=== PATIENT | female | born 1955 | race Caucasian/White ===

== ENCOUNTER 2021-05-14 12:22 | Observation (INO) | payer SELFPAY ==
[2021-05-14 14:47] LABS: Absolute Lymphocytes (CBC) 1.8 K/uL (0.7-4.9); Hematocrit 16.7 % (36.0-45.0); Lymphocytes % 17.6 % (15.3-44.8); MPV 8.1 fL (7.6-11.3); RBC Red Blood Cell Count 3.11 M/uL (3.86-4.86)
[2021-05-14 14:51] LABS: BUN Blood Urea Nitrogen 9 mg/dL (7-18); Bicarbonate 25 mmol/L (21-32); Glucose Level 88 mg/dL (74-106); Potassium 3.7 mmol/L (3.5-5.1); Sodium Level 132 mmol/L (136-145)
--- NOTE | 2021-05-14 15:10 | ER ---
Nurse's Notes [facility] Name: Tayla Francis Age: 65 yrs Sex: Female : 1955 Arrival Date: 05/14/2021 Time: 12:25 Bed 19 Private MD: Diagnosis: Anemia, unspecified Presentation: 05/14 12:38 Chief complaint: Patient states: Got blood drawn with Dr. Quigley yesterday. Was told her ll1 HGB is 3.9 and that she needs a blood transfusion. + weak, tired, fatigued, and pale. No fevers. Out of her BP meds for 1 month. Coronavirus screen: Client denies travel out of the [place] in the last 14 days. At this time, the client does not indicate any symptoms associated with coronavirus-19. Ebola Screen: Patient denies travel to an Ebola-affected area in the 21 days before illness onset. Initial Sepsis Screen: Does the patient meet any 2 criteria? No. Patient's initial sepsis screen is negative. Does the patient have a suspected source of infection? No. Patient's initial sepsis screen is negative. Risk Assessment: Do you want to hurt yourself or someone else? Patient reports no desire to harm self or others. Onset of symptoms was April 30, 2021. 12:38 Method Of Arrival: Ambulatory ll1 12:38 Acuity: SALVADOR 3 ll1 Historical: - Allergies: 12:38 No Known Allergies; ll1 - PMHx: 12:38 Hypertensive disorder; preeclampsia; ll1 - PSHx: 12:38 section; ll1 - Immunization history:: Adult Immunizations up to date. - Social history:: Smoking status: unknown. Screenin:10 Abuse screen: Denies threats or abuse. Denies injuries from another. Nutritional ww screening: No deficits noted. Tuberculosis screening: No symptoms or risk factors identified. Fall Risk None identified. Assessment: 14:10 General: Appears in no apparent distress. comfortable, Behavior is calm, cooperative, ww appropriate for age. Pain: Denies pain. Neuro: Level of Consciousness is awake, alert, obeys commands, Oriented to person, place, time, situation, Speech is normal. Cardiovascular: No deficits noted. Denies chest pain, shortness of breath, Capillary refill < 3 seconds Patient's skin is warm and dry. Respiratory: Airway is patent Respiratory effort is even, unlabored, Respiratory pattern is regular, symmetrical. GI: No deficits noted. : No signs and/or symptoms were reported regarding the genitourinary system. EENT: No deficits noted. No signs and/or symptoms were reported regarding the EENT system. Derm: Skin is intact, Skin is pale. 15:15 Reassessment: Patient appears in no apparent distress at this time. No changes from ww previously documented assessment. Patient and/or family updated on plan of care and expected duration. Pain level reassessed. Patient is alert, oriented x 3, equal unlabored respirations, skin warm/dry/pink. spouse at bedside . 17:00 Reassessment: Patient appears in no apparent distress at this time. No changes from ww previously documented assessment. Patient and/or family updated on plan of care and expected duration. Pain level reassessed. Patient is alert, oriented x 3, equal unlabored respirations, skin warm/dry/pink. 18:37 Reassessment: Patient appears in no apparent distress at this time. No changes from ww previously documented assessment. Patient and/or family updated on plan of care and expected duration. Pain level reassessed. Patient is alert, oriented x 3, equal unlabored respirations, skin warm/dry/pink. 19:00 Reassessment: Patient appears in no apparent distress at this time. No changes from ll3 previously documented assessment. Patient and/or family updated on plan of care and expected duration. Pain level reassessed. Patient is alert, oriented x 3, equal unlabored respirations, skin warm/dry/pink. Vital Signs: 12:38 BP 127 / 71; Pulse 84; Resp 16; Temp 97.8; Pulse Ox 100% ; Pain 0/10; ll1 15:00 BP 122 / 60; Pulse 73; Resp 18; Pulse Ox 100% on R/A; ww 17:30 BP 131 / 60; Pulse 77; Resp 18; Pulse Ox 100% on R/A; ww 18:37 BP 114 / 53; Pulse 78; Resp 16; Pulse Ox 100% on R/A; ww 19:59 BP 129 / 75; Pulse 83; Resp 16; Pulse Ox 100% on R/A; ll3 ED Course: 12:25 Patient arrived in ED. as 12:38 Arm band placed on Patient placed in an exam room, on a stretcher. ll1 12:40 Triage completed. ll1 12:44 Deisi Beckman FNP-C [facility]. kb 12:44 Jamey Francis MD is Attending Physician. kb 13:15 Raisa Orozco, RN is Primary Nurse. ww 14:24 Type And Screen Sent. ww 14:24 Basic Metabolic Panel Sent. ww 14:24 CBC with Diff Sent. ww 14:25 Inserted saline lock: 20 gauge in left antecubital area, using aseptic technique. Blood tp1 collected. 15:09 Javan Del Toro MD is Hospitalizing Provider. kb 19:59 Patient has correct armband on for positive identification. Bed in low position. Call 3 light in reach. Side rails up X 1. 20:00 No provider procedures requiring assistance completed. Patient admitted, IV remains in ll3 place. intact, No redness/swelling at site. Administered Medications: No medications were administered Outcome: 15:09 Decision to Hospitalize by Provider. kb 19:25 Admitted to Med/surg Report called to Attempted to call report, was told to call [place] [phone] because they had not made the assignments yet 20:00 Admitted to Med/surg accompanied by tech, via wheelchair, room 204, Report called to [facility] 20:00 Condition: stable 20:00 Discharge instructions given to patient, Instructed on the need for admit, Demonstrated understanding of instructions. 20:01 Patient left the ED. 3 Signatures: Deisi Beckman FNP-C FNP-Kamille Verdugo as Kimber Jeong RN RN 1 Alphonse Decker RN RN 3 Carlota Schreiber tp1 Raisa Orozco RN RN
--- NOTE | 2021-05-14 15:10 | EDPHYS ---
Physician Documentation [facility] Name: Tayla Francis Age: 65 yrs Sex: Female : 1955 Arrival Date: 05/14/2021 Time: 12:25 Bed 19 Private MD: Jamey Xie HPI: 05/14 14:35 This 65 yrs old Female presents to ER via Ambulatory with complaints of Abnormal Lab kb Results - needs blood transfusion. 14:36 "I changed doctors so he did a blood panel on my first visit and told me I needed a kb blood transfusion and to come to the ER." Reports fatigue and weakness. Denies bleeding from anywhere. Reports normal stools. Onset: The symptoms/episode began/occurred today. Severity of symptoms: At their worst the symptoms were moderate in the emergency department the symptoms are unchanged. The patient has not experienced similar symptoms in the past. The patient has been recently seen by a physician:. Historical: - Allergies: 12:38 No Known Allergies; ll1 - PMHx: 12:38 Hypertensive disorder; preeclampsia; ll1 - PSHx: 12:38 section; ll1 - Immunization history:: Adult Immunizations up to date. - Social history:: Smoking status: unknown. ROS: 14:37 Cardiovascular: Negative for chest pain, palpitations, and edema. kb 14:37 Constitutional: Positive for fatigue. 14:37 Neuro: Positive for weakness. 14:37 All other systems are negative. Exam: 14:37 Constitutional: This is a well developed, well nourished patient who is awake, alert, kb and in no acute distress. Head/Face: Normocephalic, atraumatic. ENT: Moist Mucous membranes Cardiovascular: Regular rate and rhythm with a normal S1 and S2. No gallops, murmurs, or rubs. No pulse deficits. Respiratory: Respirations even and unlabored. No increased work of breathing. Talking in full sentences Skin: Warm, dry with normal turgor. Normal color. MS/ Extremity: Pulses equal, no cyanosis. Neurovascular intact. Full, normal range of motion. Neuro: Awake and alert, GCS 15, oriented to person, place, time, and situation. Moves all extremities. Normal gait. Psych: Awake, alert, with orientation to person, place and time. Behavior, mood, and affect are within normal limits. 14:37 Constitutional: The patient appears pale. 17:41 Abdomen/GI: Rectal exam: is unremarkable, Stool: guaiac negative. kb Vital Signs: 12:38 BP 127 / 71; Pulse 84; Resp 16; Temp 97.8; Pulse Ox 100% ; Pain 0/10; ll1 15:00 BP 122 / 60; Pulse 73; Resp 18; Pulse Ox 100% on R/A; ww 17:30 BP 131 / 60; Pulse 77; Resp 18; Pulse Ox 100% on R/A; ww 18:37 BP 114 / 53; Pulse 78; Resp 16; Pulse Ox 100% on R/A; ww 19:59 BP 129 / 75; Pulse 83; Resp 16; Pulse Ox 100% on R/A; ll3 MDM: 12:44 Patient medically screened. abigail 14:37 Data reviewed: vital signs, nurses notes. Data interpreted: Pulse oximetry: on room air kb is 100 %. Interpretation: normal. 15:07 Counseling: I had a detailed discussion with the patient and/or guardian regarding: the kb historical points, exam findings, and any diagnostic results supporting the discharge/admit diagnosis, lab results, the need for further work-up and treatment in the hospital. Physician consultation: Javan Del Toro MD was contacted at 15:08, regarding admission, to the medical/surgical unit. and will see patient in ED. 05/14 12:47 Order name: CBC with Diff kb 05/14 12:47 Order name: Basic Metabolic Panel; Complete Time: 14:51 kb 05/14 12:47 Order name: Type And Screen kb 05/14 13:09 Order name: COVID-19 SARS RT PCR (Document "Date of Onset" if Symptomatic); Complete kb Time: 14:05/14 15:03 Order name: Packed RBC Leukored EDMS 05/14 15:09 Order name: TIBC; Complete Time: 16:06 kb 05/14 15:09 Order name: Retic Count; Complete Time: 15:53 kb 05/14 15:09 Order name: B12; Complete Time: 16:06 kb 05/14 15:09 Order name: Folic Acid,Serum (folate); Complete Time: 16:06 kb 05/14 15:09 Order name: Ferritin; Complete Time: 16:06 kb 05/14 15:30 Order name: ABO/RH no charge; Complete Time: 15:31 EDMS 05/14 16:43 Order name: Regular EDMS 05/14 17:41 Order name: Guiac kb 05/14 18:57 Order name: CBC Smear Scan EDMS 05/14 12:47 Order name: IV Start; Complete Time: 14:24 kb Administered Medications: No medications were administered Disposition Summary: 05/14/21 15:09 Hospitalization Ordered Hospitalization Status: Observation kb Provider: Javan Del Toro Location: Telemetry/MedSurg (observation) kb Condition: Stable kb Problem: new kb Symptoms: are unchanged kb Bed/Room Type: Standard Room Assignment: 204(05/14/21 18:32) eb Diagnosis - Anemia, unspecified kb Forms: - Medication Reconciliation Form kb - SBAR form kb Addendum: 05/16/2021 07:10 Co-signature as Attending Physician, Jamey Francis MD I agree with the assessment and c ramirez plan of care. Signatures: Dispatcher [employer] EDAZ Deisi Beckman, RADIOLOGIST-C RADIOLOGIST-Ckb Jamey Francis MD MD cha Botello, Elizabeth eb Lewis, Lynsay RN RN ll1 Corrections: (The following items were deleted from the chart) 05/14 18:32 15:09 kb eb
[2021-05-14 15:43] LABS: RBC Red Blood Cell Count 3.12 M/uL (3.86-4.86)
[2021-05-14] MEDS ORDERED: NA CHLORIDE 0.9% 250 ML ONE ×3 (15:53→23:49)
[2021-05-14 16:04] LABS: Ferritin 42.7 ng/mL (8-388); Folic Acid, (Folate) 3.7 ng/mL (3.1-17.5)
--- NOTE | 2021-05-14 16:42 | P.HP ---
Certification for Inpatient Patient admitted to: Observation With expected LOS: <2 Midnights Practitioner: I am a practitioner with admitting privileges, knowledge of patient current condition, hospital course, and medical plan of care. Services: Services provided to patient in accordance with Admission requirements found in Title 42 Section 412.3 of the Code of Federal Regulations Patient History Date of Service: 05/14/21 Reason for admission: anemia History of Present Illness: 65yo F, sent to ED due to routine lab finding of Hgb down to 4. She reports fatigue / generalized weakness over the last 3-4 weeks. Denies any bleeding. Denies dark stools, no blood in urine/stool. Reports decreased appetite for a few months. Decreased taste in the last ~3 weeks as well. Denies history of covid. Denies n/v/d, no abdominal pain Patient ordered for 2u PRBC. Labs consistent with microcytic anemia. ED provider requests admission for blood transfusion. - Past Medical/Surgical History -: HTN -: hysterectomy - Family History Family History: Reviewed- Non-Contributory - Social History Smoking Status: Never smoker Alcohol use: No Place of Residence: Home Review of Systems 10-point ROS is otherwise unremarkable Physical Examination - Physical Exam General: Alert, In no apparent distress, Oriented x3, Other (pale) HEENT: Sclerae nonicteric Neck: No LAD Respiratory: Clear to auscultation bilaterally Cardiovascular: No edema, Regular rate/rhythm Capillary refill: <2 Seconds Gastrointestinal: Soft and benign, Non-distended, No tenderness Musculoskeletal: No erythema, No tenderness Integumentary: No rashes, No significant lesion Neurological: Normal speech, Normal strength at 5/5 x4 extr, Normal affect - Studies Laboratory Data (last 24 hrs) 05/14/21 14:16: Sodium 132 L, Potassium 3.7, BUN 9, Creatinine 0.57, Glucose 88 05/14/21 14:16: WBC 10.10, Hgb 4.5 L*, Hct 16.7 L*, Plt Count 881 H Assessment and Plan - Advance Directives Does patient have a Living Will: No Does patient have a Durable POA for Healthcare: No Physician Review Additional Text: Problem List Microcytic anemia History of hypertension Neuropathy Microcytic anemia, iron studies ordered Suspect iron deficiency, patient denies any dark or maroon stools Guaiac negative in ED Possible slow GI bleed Vital signs within normal limits, and stable 2 units ordered in the ED, will follow-up on posttransfusion hemoglobin Confirm home medications, restart as appropriate Code: Full Dispo: Anticipate DC home tomorrow Time Spent Managing Pts Care (In Minutes): 60
[2021-05-14 18:45] LABS: Blood Morphology Comment NOTED (NOT SEEN); Platelet Estimate INCR; White Blood Cell Scan OK (OK)
[2021-05-14 18:46] LABS: Anisocytosis 2+
[2021-05-14 18:54] LABS: Poikilocytosis 2+
[2021-05-14 18:56] LABS: Ovalocytes 1+; Polychromasia 1+; Teardrop Cell 1+
[2021-05-14 20:15] VITALS: BMI 21.3
[2021-05-14] MEDS ORDERED: ONDANSETRON 4 MG/2 ML VIAL IV PRN (20:15)
[2021-05-14] MEDS ORDERED: POTASSIUM CL SA 10 MEQ TAB PO ONE (22:13)
[2021-05-15 01:27] LABS: Urine Bilirubin NEGATIVE (Negative); Urine Blood NEGATIVE (Negative); Urine Color YELLOW (Yellow); Urine Glucose NEGATIVE (Negative); Urine Protein NEGATIVE (Negative); Urine pH 7.5 (5.0-7.0)
[2021-05-15 01:29] LABS: Urine Appearance CLEAR (Clear); Urine Microscopic Reflex NO UMIC
[2021-05-15 04:32] LABS: Absolute Lymphocytes (CBC) 2.1 K/uL (0.7-4.9); Hematocrit 24.1 % (36.0-45.0); Lymphocytes % 14.6 % (15.3-44.8)
[2021-05-15 04:52] LABS: ALT/SGPT 9 U/L (12-78); AST/SGOT 14 U/L (15-37); Albumin 2.1 g/dL (3.4-5.0); Alkaline Phosphatase 146 U/L (45-117); BUN Blood Urea Nitrogen 7 mg/dL (7-18); Bicarbonate 24 mmol/L (21-32); Bilirubin Total 0.5 mg/dL (0.2-1.0); Glucose Level 119 mg/dL (74-106); Magnesium 2.3 mg/dL (1.8-2.4); Potassium 3.9 mmol/L (3.5-5.1); Protein, Total 6.3 g/dL (6.4-8.2); Sodium Level 133 mmol/L (136-145)
--- NOTE | 2021-05-15 06:11 | P.PN ---
Date of Service: 05/15/21
[2021-05-15] MEDS ORDERED: POTASSIUM CL SA 10 MEQ TAB PO ONE (09:00)
[2021-05-15 09:26] VITALS: O2SAT 92
--- NOTE | 2021-05-15 12:32 | P.DS ---
Admission Date: 05/14/21 Discharge Date: 05/15/21 Disposition: ROUTINE DISCHARGE Discharge Condition: GOOD Reason for Admission: anemia Procedures: Problem List Microcytic anemia, severe iron deficiency History of hypertension Neuropathy Brief History of Present Illness: 65yo F, sent to ED due to routine lab finding of Hgb down to 4. She reports fatigue / generalized weakness over the last 3-4 weeks. Denies any bleeding. Denies dark stools, no blood in urine/stool. Reports decreased appetite for a few months. Decreased taste in the last ~3 weeks as well. Denies history of cov id. Denies n/v/d, no abdominal pain Patient ordered for 2u PRBC. Labs consistent with microcytic anemia. ED provider requests admission for blood transfusion. Hospital Course: Found to have anemia with hemoglobin down to 4.5 received 2 units of blood transfusion with improvement to 7.2. Patient had significant improvement of her symptoms of fatigue and weakness. Patient ambulated over 200 feet with physical therapy and deemed stable for discharge home. Vital signs remained normal and stable. Stool was negative for microscopic blood. Advised patient to f/u with PCP to review rest of workup already ordered by them. Recommended to fu with GI, an EGD and Colonoscopy would be indicated and she has never had a screening c-scope either. She does also seem to have some GERD symptoms. Possible very slow bleed from ulcer vs iron deficiency secondary to malnutrition vs possible malignancy. Patient reported >6 months of decreased appetite / PO intake, and ~45-50 lb weight loss during that time. Discharged home to continue with iron supplementation tablets. Vital Signs/Physical Exam: Temp Pulse Resp BP Pulse Ox 98.2 F 76 15 141/65 H 97 05/15/21 08:00 05/15/21 08:00 05/15/21 08:00 05/15/21 08:00 05/15/21 08:00 General: Alert, In no apparent distress, Oriented x3 HEENT: Atraumatic, PERRLA, EOMI Respiratory: Clear to auscultation bilaterally, Normal air movement Cardiovascular: No edema, Regular rate/rhythm, Normal S1 S2 Gastrointestinal: Soft and benign, Non-distended, No tenderness Musculoskeletal: No erythema Integumentary: No rashes, No significant lesion Neurological: Normal gait, Normal speech, Normal affect Laboratory Data at Discharge: WBC 14.40 K/uL (4.3-10.9) H D 05/15/21 04:23 Hgb 7.2 g/dL (12.0-15.0) L D 05/15/21 04:23 Hct 24.1 % (36.0-45.0) L D 05/15/21 04:23 Plt Count 799 K/uL (152-406) H 05/15/21 04:23 Sodium 133 mmol/L (136-145) L 05/15/21 04:23 Potassium 3.9 mmol/L (3.5-5.1) 05/15/21 04:23 BUN 7 mg/dL (7-18) 05/15/21 04:23 Creatinine 0.63 mg/dL (0.55-1.3) 05/15/21 04:23 Glucose 119 mg/dL (74-106) H 05/15/21 04:23 Magnesium 2.3 mg/dL (1.8-2.4) 05/15/21 04:23 Total Bilirubin 0.5 mg/dL (0.2-1.0) 05/15/21 04:23 AST 14 U/L (15-37) L 05/15/21 04:23 ALT 9 U/L (12-78) L 05/15/21 04:23 Alkaline Phosphatase 146 U/L (45-117) H 05/15/21 04:23 Home Medications: Ferrous Sulfate [Feosol] 325 mg PO DAILY 30 Days #30 tab 05/15/21 New Medications: Ferrous Sulfate [Feosol] 325 mg PO DAILY 30 Days #30 tab Physician Discharge Instructions: You are found to have anemia with hemoglobin down to 4.5 received 2 units of blood transfusion with improvement to 7.2. He had significant improvement of your symptoms of fatigue and weakness. You ambulated over 200 feet with physical therapy and deemed stable for discharge home. Your vital signs remained normal and stable. Your stool was negative for microscopic blood. This anemia could be secondary to your decreased nutritional intake, possibly another secondary effect from what ever is decreasing your appetite as well. Given the anemia and your age, recommend close follow-up with GI, you need to have a colonoscopy and likely an EGD performed in the next month or two. Work-up here revealed a microcytic anemia, with significantly low iron. This is consistent with iron deficiency anemia. You are discharged home to continue with iron supplementation tablets. Follow-up with your PCP in the next week or 2, as currently scheduled. Diet: Regular Activity: Ad pauly Followup: Christ Quigley MD [Primary Care Provider] - (Call to schedule appointment) Time spent managing pt's care (in minutes): 45
[2021-05-15 14:54] VITALS: BP 129/62; TEMP 98.4
== END 2021-05-15 15:40 | disposition home or self-care (01) ==
LOC: ER 12:22 → ERHOLD 16:39 → 2ND 19:57
PROVIDERS: ADMIT Hospitalist; ATTEND Hospitalist
PROC: 30233N1 Transfusion of Nonautologous Red Blood Cells into Peripheral Vein, Percutaneous Approach (ICD-10-PCS; principal; 2021-05-14)
DX: D50.9 Iron deficiency anemia, unspecified (principal); I10 Essential (primary) hypertension; G62.9 Polyneuropathy, unspecified; Z90.710 Acquired absence of both cervix and uterus; Z20.822 Contact with and (suspected) exposure to COVID-19
CPT/HCPCS: 36415; 36430; 80048; 80053; 81003; 82272; 82607; 82728; 82746; 83540; 83735; 84466; 85025; 85044; 86850; 86900; 86901; 94760; 97116; 97162; 99285; G0378; J7050; P9016; U0003

== ENCOUNTER 2021-08-05 14:02 | Inpatient (IN) | payer SELFPAY ==
[2021-08-05 15:22] LABS: Absolute Lymphocytes (CBC) 2.4 K/uL (0.7-4.9); Hematocrit 16.7 % (36.0-45.0); Lymphocytes % 18.1 % (15.3-44.8); MPV 6.3 fL (7.6-11.3); RBC Red Blood Cell Count 2.76 M/uL (3.86-4.86)
[2021-08-05 15:27] LABS: Protime INR 1.3
[2021-08-05 15:45] LABS: AST/SGOT 22 U/L (15-37); Albumin 2.3 g/dL (3.4-5.0); Alkaline Phosphatase 211 U/L (45-117); BUN Blood Urea Nitrogen 13 mg/dL (7-18); Bicarbonate 27 mmol/L (21-32); Bilirubin Direct 0.2 mg/dL (0-0.2); Bilirubin Total 0.4 mg/dL (0.2-1.0); Glucose Level 84 mg/dL (74-106); Lipase 101 U/L (73-393); Magnesium 2.5 mg/dL (1.8-2.4); Protein, Total 7.2 g/dL (6.4-8.2); Sodium Level 137 mmol/L (136-145); Troponin High Sensitivity 5.6 pg/mL (<58.9)
[2021-08-05 15:47] LABS: ALT/SGPT 15 U/L (12-78)
[2021-08-05 15:52] LABS: Potassium 2.5 mmol/L (3.5-5.1)
[2021-08-05 15:53] LABS: White Blood Cell Scan OK (OK)
[2021-08-05 15:54] LABS: Anisocytosis 2+; Blood Morphology Comment NOTED (NOT SEEN); Hypochromasia 2+; Platelet Estimate INCR; Platelets, Giant PRESENT
--- NOTE | 2021-08-05 16:54 | ER ---
Nurse's Notes [facility] Name: Tayla Francis Age: 66 yrs Sex: Female : 1955 Arrival Date: 08/05/2021 Time: 14:04 Bed 15 Private MD: Christ Quigley T Diagnosis: GI Bleed/ Gastrointestinal hemorrhage, unspecified;Anemia, unspecified Presentation: 08/05 14:14 Chief complaint: Patient states: Sent by GI doctor for low blood levels HGB 5.9, Was ll1 supposed to have EGD and colonoscopy today. Coronavirus screen: Vaccine status: Patient reports being unvaccinated. Client denies travel out of the [place] in the last 14 days. At this time, the client does not indicate any symptoms associated with coronavirus-19. Ebola Screen: Patient denies travel to an Ebola-affected area in the 21 days before illness onset. Initial Sepsis Screen: Does the patient meet any 2 criteria? No. Patient's initial sepsis screen is negative. Does the patient have a suspected source of infection? No. Patient's initial sepsis screen is negative. Risk Assessment: Do you want to hurt yourself or someone else? Patient reports no desire to harm self or others. Onset of symptoms was August 05, 2021. 14:14 Method Of Arrival: Ambulatory ll1 14:14 Acuity: SALVADOR 3 ll1 Triage Assessment: 14:17 General: Appears ill, Behavior is calm, cooperative, appropriate for age. Pain: ll1 Complains of pain in R shoulder Quality of pain is described as aching. Neuro: Reports weakness. Musculoskeletal: Reports pain in R shoulder. Historical: - Allergies: 14:17 No Known Allergies; ll1 - PMHx: 14:17 Hypertensive disorder; PREECLAMPSIA; ll1 - PSHx: 14:17 section; ll1 - Immunization history:: Client reports having NOT received the Covid vaccine. Flu vaccine status is unknown. - Social history:: Smoking status: Patient denies any tobacco usage or history of. Screenin:00 Abuse screen: Denies threats or abuse. Nutritional screening: No deficits noted. ke1 Tuberculosis screening: No symptoms or risk factors identified. Fall Risk No fall in past 12 months (0 pts). No secondary diagnosis (0 pts). IV access (20 points). Ambulatory Aid- None/Bed Rest/Nurse Assist (0 pts). Gait- Normal/Bed Rest/Wheelchair (0 pts) Mental Status- Oriented to own ability (0 pts). Total Santillan Fall Scale indicates. Assessment: 19:00 Reassessment: Patient is alert, oriented x 3, equal unlabored respirations, skin ke1 warm/dry/pink. Pain: Denies pain. Neuro: Level of Consciousness is awake, alert, obeys commands, Oriented to person, place, time, situation. Cardiovascular: No deficits noted. Derm: Skin is jaundiced. 22:15 Reassessment: First unit of blood administered, NARN. ke1 22:20 Reassessment: Med surg called for report, nurse is busy and will call me back. ke1 23:32 Reassessment: report given to nurse joe in med surg, waiting on help to transfer ke1 patient to the floor. Vital Signs: 14:14 BP 134 / 67; Pulse 79; Resp 17; Temp 98.1; Pulse Ox 94% ; Weight 48.99 kg; Height 5 ft. ll1 0 in. (152.40 cm); Pain 8/10; 14:14 Body Mass Index 21.09 (48.99 kg, 152.40 cm) ll1 ED Course: 14:04 Patient arrived in ED. mr 14:04 Christ Quigley MD is Private Physician. mr 14:09 [facility] Nassar [facility]. cp 14:09 Jamey Francis MD is Attending Physician. cp 14:17 Triage completed. ll1 14:18 Arm band placed on. ll1 14:30 Candelaria Betancur, SHANEL is Primary Nurse. jh6 15:35 XRAY Chest (1 view) In Process Unspecified. EDMS 17:11 CT Abd/Pelvis - IV Contrast Only In Process Unspecified. EDMS 20:46 Helder Aguilar MD is Hospitalizing Provider. cp 21:00 Bed in low position. Call light in reach. Adult w/ patient. ke1 21:49 Primary Nurse role handed off by Candelaria Betancur, RN cs9 21:56 Marky Cisse, SHANEL is Primary Nurse. ke1 23:33 No provider procedures requiring assistance completed. ke1 23:34 Patient admitted, IV remains in place. ke1 Administered Medications: 18:02 Drug: Potassium Chloride 20 mEq Route: IV; Rate: calculated rate; Site: left 6 antecubital; 20:15 Follow up: Response: No adverse reaction; IV Status: Completed infusion ke1 18:02 Drug: ProTONIX (pantoprazole) 40 mg Route: IVP; Site: left antecubital; [facility] 19:01 Drug: ProTONIX (pantoprazole) 8 mg/hr Route: IV; Rate: 25 ml/hr; Site: right 6 antecubital; 21:57 CANCELLED (Physician Discretion): morphine 2 mg IVP once; (PAIN>8) RASS on ADMN: cp Combtv4, Very Agttd3, Agttd2, Rstlss1, AlertClm0, Drwsy-1, LtSdtn-2, ModSdtn-3, DpSdtn-4, UnArsble-5 x2 Medication: 22:00 Blood products: PRBCs X 1 unit given. See transfusion record. ke1 Outcome: 16:53 ER care complete, transfer ordered by MD. cp 20:47 Decision to Hospitalize by Provider. cp 23:00 Admitted to Med/surg accompanied by tech. ke1 23:00 Condition: good 23:00 Instructed on the need for admit. 23:26 Patient left the ED. ke1 Signatures: Dispatcher [employer] Dania Olmos Corey, PA PA cp Lewis, Lynsay, RN RN 1 Heather Johnson Candelaria Carnes RN RN 6 Marky Cisse RN RN ke1
--- NOTE | 2021-08-05 16:54 | EDPHYS ---
Physician Documentation [facility] Name: Tayla Francis Age: 66 yrs Sex: Female : 1955 Arrival Date: 08/05/2021 Time: 14:04 Bed 15 Private MD: Christ Quigley T ED Physician Jamey Francis HPI: 08/05 15:00 This 66 yrs old Female presents to ER via Ambulatory with complaints of Anemia. cp 15:00 Patient referred to ED for evaluation for anemia. Patient reports she was scheduled to have upper endoscopy and colonoscopy by DR Carreon today until her hemoglobin level returned at 5.9. Patient was instructed to go to ED for evaluation. Patient reports dizziness, dark colored stools, general weakness. Historical: - Allergies: 14:17 No Known Allergies; ll1 - PMHx: 14:17 Hypertensive disorder; PREECLAMPSIA; ll1 - PSHx: 14:17 section; ll1 - Immunization history:: Client reports having NOT received the Covid vaccine. Flu vaccine status is unknown. - Social history:: Smoking status: Patient denies any tobacco usage or history of. ROS: 15:00 Constitutional: Negative for body aches, chills, fever, poor PO intake. cp 15:00 Eyes: Negative for injury, pain, redness, and discharge. cp 15:00 ENT: Negative for drainage from ear(s), ear pain, sore throat, difficulty swallowing, difficulty handling secretions. 15:00 Cardiovascular: Negative for chest pain. 15:00 Respiratory: Negative for cough, shortness of breath, wheezing. 15:00 Abdomen/GI: Positive for black/tarry stool, Negative for abdominal pain, vomiting, diarrhea, constipation. 15:00 : Negative for urinary symptoms. 15:00 Neuro: Positive for dizziness, weakness, Negative for altered mental status, headache, loss of consciousness, syncope. 15:00 All other systems are negative. Exam: 15:05 Constitutional: The patient appears in no acute distress, alert, awake, cp non-diaphoretic, non-toxic, well developed, well nourished. 15:05 Head/Face: Normocephalic, atraumatic. cp 15:05 Eyes: Periorbital structures: appear normal, Conjunctiva: normal, no exudate, no injection, Sclera: no appreciated abnormality, Lids and lashes: appear normal, bilaterally. 15:05 ENT: External ear(s): are unremarkable, Nose: is normal, Mouth: Lips: moist, Oral mucosa: moist, Posterior pharynx: Airway: no evidence of obstruction, patent. 15:05 Chest/axilla: Inspection: normal, Palpation: is normal, no crepitus, no tenderness. 15:05 Cardiovascular: Rate: normal, Rhythm: regular, Edema: is not appreciated, JVD: is not appreciated. 15:05 Respiratory: the patient does not display signs of respiratory distress, Respirations: normal, no use of accessory muscles, no retractions, labored breathing, is not present, Breath sounds: are clear throughout, no decreased breath sounds, no stridor, no wheezing. 15:05 Abdomen/GI: Inspection: abdomen appears normal, Bowel sounds: active, all quadrants, Palpation: soft, in all quadrants, mild abdominal tenderness, in all quadrants, rebound tenderness, is not appreciated, voluntary guarding, is not appreciated, involuntary guarding, is not appreciated. 15:05 Back: CVA tenderness, is absent. 15:05 Neuro: Orientation: to person, place \\T\\ time. Mentation: is normal, Motor: moves all fours, strength is normal, Sensation: is normal. 15:10 Abdomen/GI: Rectal exam: Stool: brown, guaiac positive, hemorrhoid(s), external, cp without bleeding, without inflammation, without thrombosis. 18:00 ECG was reviewed by the Attending Physician. cp Vital Signs: 14:14 BP 134 / 67; Pulse 79; Resp 17; Temp 98.1; Pulse Ox 94% ; Weight 48.99 kg; Height 5 ft. ll1 0 in. (152.40 cm); Pain 8/10; 14:14 Body Mass Index 21.09 (48.99 kg, 152.40 cm) ll1 MDM: 14:20 Patient medically screened. cp 16:00 Differential diagnosis: gastritis, diverticulitis, hemorrhoids, hemorrhagic shock, cp varices. 18:00 Data reviewed: vital signs, nurses notes, lab test result(s), radiologic studies, CT cp scan, plain films, I have discussed the patient's presentation/case with the attending Emergency Department Physician; and as a result, I will attempt to transfer patient for GI consult due to lack of service. 20:35 ED course: Attempt to transfer to [facility], spoke with DR Cuevas who cp reports patient will not receive upper endoscopy and/or colonoscopy if transferred at this time. 20:45 Physician consultation: Kannan Satish was contacted at 20:45, regarding patient's cp condition, will accept patient for admission to hospital under DR Aguilar after consult with physician. 08/05 15:00 Order name: Basic Metabolic Panel; Complete Time: 16:27 cp 08/05 16:28 Interpretation: Normal except: K 2.5; CA 8.2. cp 08/05 15:00 Order name: CBC with Diff; Complete Time: 16:27 cp 08/05 16:28 Interpretation: Normal except: WBC 13.4; RBC 2.76; HGB 5.1; HCT 16.7; MCV 60.4; MCH cp 18.7; MCHC 30.9; PLT 905; RDW 23.0; MPV 6.3; SERGO% 74.0; NEUT A 9.9. 08/05 15:00 Order name: LFT's; Complete Time: 16:27 cp 08/05 17:47 Interpretation: Normal except: ALK 211; ALB 2.3; GLOB 4.9; A/G 0.5. cp 08/05 15:00 Order name: Magnesium; Complete Time: 16:27 cp 08/05 15:00 Order name: PT-INR; Complete Time: 16:27 cp 08/05 15:00 Order name: Troponin HS; Complete Time: 16:27 cp 08/05 15:00 Order name: XRAY Chest (1 view); Complete Time: 17:46 cp 08/05 15:00 Order name: Ptt, Activated; Complete Time: 16:27 cp 08/05 15:00 Order name: Type And Screen cp 08/05 15:00 Order name: Lipase; Complete Time: 16:27 cp 08/05 15:00 Order name: Urine Microscopic Only cp 08/05 15:55 Order name: CBC Smear Scan; Complete Time: 16:27 EDMS 08/05 17:03 Order name: COVID-19/FLU A+B (Document "Date of Onset" if Symptomatic); Complete Time: cp 19:09 08/05 20:26 Interpretation: Reviewed. cp 08/05 17:23 Order name: Packed RBC Leukored EDMS 08/05 15:00 Order name: Orthostatics 08/05 15:00 Order name: EKG; Complete Time: 15:01 08/05 15:00 Order name: Cardiac monitoring; Complete Time: 19:59 cp 08/05 15:00 Order name: EKG - Nurse/Tech 08/05 15:00 Order name: IV Saline Lock; Complete Time: 19:59 cp 08/05 15:00 Order name: Labs collected and sent; Complete Time: 19:58 08/05 15:00 Order name: O2 Per Protocol; Complete Time: 19:58 08/05 15:00 Order name: O2 Sat Monitoring; Complete Time: 19:58 08/05 15:00 Order name: Urine Dipstick-Ancillary (obtain specimen) 08/05 16:29 Order name: CT Abd/Pelvis - IV Contrast Only; Complete Time: 17:46 08/05 20:35 Interpretation: Report reviewed. 08/05 19:14 Order name: Vital Signs; Complete Time: 00:07 08/05 19:53 Order name: Transfuse; Complete Time: 20:28 cp EC:00 Rate is 81 beats/min. Rhythm is regular. AK interval is normal. QRS interval is normal. cp QT interval is normal. Interpreted by me. Reviewed by me. Administered Medications: 18:02 Drug: Potassium Chloride 20 mEq Route: IV; Rate: calculated rate; Site: left [address]; 20:15 Follow up: Response: No adverse reaction; IV Status: Completed infusion ke1 18:02 Drug: ProTONIX (pantoprazole) 40 mg Route: IVP; Site: left antecubital; [facility] 19:01 Drug: ProTONIX (pantoprazole) 8 mg/hr Route: IV; Rate: 25 ml/hr; Site: right [facility] antecubital; 21:57 CANCELLED (Physician Discretion): morphine 2 mg IVP once; (PAIN>8) RASS on ADMN: cp Combtv4, Very Agttd3, Agttd2, Rstlss1, AlertClm0, Drwsy-1, LtSdtn-2, ModSdtn-3, DpSdtn-4, UnArsble-5 x2 Disposition Summary: 08/05/21 20:47 Hospitalization Ordered Hospitalization Status: Inpatient Admission cp Provider: Omitogun, Helder cp Location: Telemetry/MedSurg (Inpatient) cp Condition: Stable(08/05/21 20:47) cp Problem: new(08/05/21 20:47) cp Symptoms: have improved(08/05/21 20:47) cp Bed/Room Type: Standard cp Room Assignment: 203(08/05/21 21:15) cg Diagnosis - GI Bleed/ Gastrointestinal hemorrhage, unspecified(08/05/21 20:47) cp - Anemia, unspecified(08/05/21 20:47) cp Forms: - Medication Reconciliation Form cp - SBAR form cp Addendum: 08/13/2021 07:54 Co-signature as Attending Physician, Jamey Francis MD I agree with the assessment and c ramirez plan of care. Signatures: Dispatcher [employer] EDJamey Dill MD MD cha Page, Corey, PA PA cp Verónica Ellis, RN RN cg Kimber Jeong RN RN ll1 Candelaria Betancur RN RN [id number] Marky Cisse RN ke1 Corrections: (The following items were deleted from the chart) 08/05 16:28 16:27 Normal except: K 2.5. cp cp 16:54 16:53 Doctor cp cp 20:46 16:53 [facility] cp cp 20:46 16:53 Higher level of care cp cp 20:46 16:53 Stable cp cp 20:46 16:53 new cp cp 20:46 16:53 have improved cp cp 20:46 16:53 Anemia, unspecified cp cp 20:46 16:53 GI Bleed/ Gastrointestinal hemorrhage, unspecified cp cp 20:46 16:54 Doctor cp cp 20:46 16:54 Hypokalemia cp cp 21:15 20:47 cp cg 21:57 21:50 morphine 2 mg IVP once; (PAIN>8) RASS on ADMN: Combtv4, Very Agttd3, Agttd2, cp Rstlss1, AlertClm0, Drwsy-1, LtSdtn-2, ModSdtn-3, DpSdtn-4, UnArsble-5 x2 ordered. cp 08/06 14:57 08/05 20:45 Physician consultation: Kannan Covarrubias was contacted at 20:45, regarding cp patient's condition, will accept patient for admission to hospital under DR Reddy after consult with physician, maria 08/06 14:58 08/05 20:45 Physician consultation: Kannan Covarrubias was contacted at 20:45, regarding cp patient's condition, will accept patient for admission to hospital under DR Murphy after consult with physician, maria
--- NOTE | 2021-08-05 17:29 | RAD REPORT ---
EXAM DESCRIPTION: CT - Abdomen Pelvis W Contrast - 08/05/2021 5:09 pm CLINICAL HISTORY: Abdominal pain COMPARISON: none. TECHNIQUE: Computed axial tomography of the abdomen pelvis was obtained. 100 cc Isovue-300 was admin istered intravenously. Oral contrast was not requested which limits evaluation of bowel. All CT scans are performed using dose optimization technique as appropriate and may include automated exposure control or mA/KV adjustment according to patient size. FINDINGS: The left lobe of the liver is enlarged. The liver contains multiple hypo to isodense mass es measuring up to 6.7 centimeters. The portal vein is patent. The spleen, pancreas and adrenals unremarkable Left renal cysts. Right kidney unremarkable. An approximately 4.4 centimeter mass within the proximal ascending colon. Couple of small adjacent ly mph nodes. Cholelithiasis A 5 millimeter nodule anterior right lung base. 17 millimeter nodule within the right lower lobe IMPRESSION: 4.4 centimeter ascending colon mass likely neoplasm Multiple hepatic lesions likely metastases Lung nodules probably metastases
--- NOTE | 2021-08-05 17:30 | RAD REPORT ---
[facility]33 pm CLINICAL HISTORY: Anemia COMPARISON: none FINDINGS: A 17 millimeter nodule medial right lung base. 5 millimeter right basilar nodule. Equivocal subcentimeter nodule adjacent to the left hilum. . The heart is normal size IMPRESSION: Lung nodules may represent metastases
[2021-08-05] MEDS ORDERED: KCL 20 MEQ/100 mL IVPB 100 ML IV ONE (17:40)
[2021-08-05] MEDS ORDERED: PANTOPRAZOLE 40 MG INJ ONE (17:40)
[2021-08-05] MEDS ORDERED: PANTOPRAZOLE INJ 80 MG in NA CHLORIDE 0.9% 250 ML IV SCH (18:00)
[2021-08-05 18:19] LABS: SARS-COV-2 RT PCR NEGATIVE (NEGATIVE)
[2021-08-05] MEDS ORDERED: NA CHLORIDE 0.9% 250 ML ONE (20:02)
--- NOTE | 2021-08-05 21:11 | P.HP ---
Certification for Inpatient Patient admitted to: Observation With expected LOS: <2 Midnights Patient will require the following post-hospital care: None Practitioner: I am a practitioner with admitting privileges, knowledge of patient current condition, hospital course, and medical plan of care. Services: Services provided to patient in accordance with Admission requirements found in Title 42 Section 412.3 of the Code of Federal Regulations Patient History Date of Service: 08/05/21 Reason for admission: Anemia, hypokalemia History of Present Illness: 66-year-old female with history of iron deficiency anemia presented to the emergency department for abnormal labs. She was post have a colonoscopy and EGD done outpatient today but preoperative labs revealed a low hemoglobin she was sent to the emergency department for evaluation. Her hemoglobin in the ER is 5.1 hematocrit 16.7 her platelets Were [address] abdomen pelvi s was performed which demonstrated 4.4 cm ascending colon mass likely neoplasm with a 5 mm nodule anterior right lung base and 17 mm nodule within the right lower lobe in addition to multiple hepatic lesions likely suggesting colonic neoplasm with metastasis to the lungs/liver. This was discussed with patient. She was seen here and treated for severe anemia in April of this year instructed to follow-up which is why she had a colonoscopy and EGD scheduled for today. Patient has never had colonoscopy before. Initially ED provider attempted transfer to tertiary center given that we did not have GI on-call, GI physician at [facility] stated this is likely a slow bleed and can likely be managed our facility with transfusion and possible outpatient scope. We do have GI on-call for tomorrow we will admit continue transfusion and Protonix. Allergies No Known Allergies Allergy (Unverified 05/14/21 20:30) Home Medications: Ferrous Sulfate [Feosol] 325 mg PO DAILY 30 Days #30 tab 05/15/21 - Past Medical/Surgical History Diabetic: No -: HTN -: Iron deficiency anemia -: C section Psychosocial/ Personal History: Patient is retired lives at home with her - Family History Father -: Stroke Mother -: Lung disease Notes: Pneumonia - Social History Smoking Status: Never smoker Alcohol use: Yes CD- Drugs: No Caffeine use: Yes Place of Residence: Home Review of Systems 10-point ROS is otherwise unremarkable General: Weakness, Malaise Physical Examination - Physical Exam General: Alert, In no apparent distress HEENT: Atraumatic, PERRLA, Other (Mucous membranes pale), EOMI, Sclerae nonicte humberto Neck: Supple, 2+ carotid pulse no bruit, No LAD, Without JVD or thyroid abnormality Respiratory: Clear to auscultation bilaterally, Normal air movement Cardiovascular: Regular rate/rhythm, Normal S1 S2 Gastrointestinal: Normal bowel sounds, No tenderness Musculoskeletal: No tenderness Integumentary: No rashes Neurological: Normal gait, Normal speech, Normal strength at 5/5 x4 extr, Normal tone, Normal affect Lymphatics: No axilla or inguinal lymphadenopathy - Studies Laboratory Data (last 24 hrs) 08/05/21 15:06: PT 14.4 H, INR 1.30, APTT 29.5 08/05/21 15:06: WBC 13.4 H, Hgb 5.1 L*, Hct 16.7 L*, Plt Count 905 H* 08/05/21 15:06: Sodium 137, Potassium 2.5 L*, BUN 13, Creatinine 0.61, Glucose 84, Magnesium 2.5 H, Total Bilirubin 0.4, AST 22, ALT 15, Alkaline Phosphatase 211 H, Lipase 101 Assessment and Plan - Plan Assessment: Microcytic anemia suspect NATHALIA/colonic neoplasm 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 GI not on-call this evening but will be available tomorrow, I did attempt to reach out to GI who will be on-call tomorrow but unable to reach at this time. We will continue with Protonix IV twice daily as I suspect a slow, lower GI bleed versus upper. 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 Patiently to follow- up with GI and oncology on outpatient basis once discharged from the hospital. Patient given copy of CT scan, made aware of findings. DVT PPX: SCD Code status: Full Discharge Plan: Home Plan to discharge in: 24 Hours - Advance Directives Does patient have a Living Will: No Does patient have a Durable POA for Healthcare: No - Code Status/Comfort Care Code Status Assessed: Yes (Full code) Critical Care: No Time Spent Managing Pts Care (In Minutes): 55
[2021-08-05] MEDS ORDERED: SODIUM CHLORIDE 0.9% 10ML INJ IV PRN (23:37)
[2021-08-06] MEDS: PANTOPRAZOLE 40 MG INJ IVP SCH ×3 (00:02→20:55)
[2021-08-06] MEDS ORDERED: NA CHLORIDE 0.9% 250 ML ONE ×2 (00:28→12:46)
[2021-08-06 01:07] VITALS: BMI 18.7
[2021-08-06 06:39] LABS: Absolute Lymphocytes (CBC) 1.5 K/uL (0.7-4.9); Hematocrit 23.6 % (36.0-45.0); Lymphocytes % 9.1 % (15.3-44.8); MPV 6.2 fL (7.6-11.3); RBC Red Blood Cell Count 3.45 M/uL (3.86-4.86)
[2021-08-06 07:11] LABS: ALT/SGPT 11 U/L (12-78); AST/SGOT 19 U/L (15-37); Alkaline Phosphatase 176 U/L (45-117); BUN Blood Urea Nitrogen 9 mg/dL (7-18); Bicarbonate 25 mmol/L (21-32); Glucose Level 78 mg/dL (74-106); Protein, Total 6.3 g/dL (6.4-8.2); Sodium Level 138 mmol/L (136-145)
[2021-08-06 07:12] LABS: Potassium 2.8 mmol/L (3.5-5.1)
[2021-08-06] MEDS: KCL 20 MEQ/100 mL IVPB 20 MEQ/100 ML BAG IV SCH ×2 (08:15→10:45)
[2021-08-06] MEDS ORDERED: POTASSIUM CL SA 10 MEQ TAB PO ONE ×2 (09:00→12:00)
--- NOTE | 2021-08-06 09:53 | P.PN ---
Subjective Date of Service: 08/06/21 Chief Complaint: Anemia, hypokalemia Subjective: No new changes, Improving Physical Examination - Vital Signs Temperature: 98.7 F Blood Pressure: 115/53 Pulse: 75 Respirations: 16 Pulse Ox (%): 94 - Physical Exam General: Alert, Oriented x3 HEENT: Atraumatic, Normocephalic Neck: Supple Respiratory: Normal air movement Cardiovascular: Regular rate/rhythm, Normal S1 S2 Gastrointestinal: Soft and benign Neurological: Normal speech - Studies Laboratory Data (last 24 hrs) 08/05/21 15:06: PT 14.4 H, INR 1.30, APTT 29.5 08/05/21 15:06: WBC 13.4 H, Hgb 5.1 L*, Hct 16.7 L*, Plt Count 905 H* 08/05/21 15:06: Sodium 137, Potassium 2.5 L*, BUN 13, Creatinine 0.61, Glucose 84, Magnesium 2.5 H, Total Bilirubin 0.4, AST 22, ALT 15, Alkaline Phosphatase 211 H, Lipase 101 Assessment And Plan - Plan Microcytic anemia suspect NATHALIA/colonic neoplasm 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 We will continue q. 6 H&H monitoring. 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 For possible EGD for management/work-up of suspected colonic malignancy today. DVT PPX: SCD Code status: Full Discharge Plan: Home Plan to discharge in: 24 Hours
[2021-08-06] MEDS ORDERED: KCL 20 MEQ/100 mL IVPB 20 MEQ/100 ML BAG IV SCH (12:00)
[2021-08-06] MEDS ORDERED: propofoL 200 MG/20 ML VIAL IV ONE ×2 (14:44)
[2021-08-06] MEDS ORDERED: LIDOCAINE 1% MPF 5 ML VIAL ONE (14:44)
[2021-08-06] MEDS ORDERED: Ringers Lactate 1,000 ML IV ONE (14:50)
--- NOTE | 2021-08-06 15:16 | ENDO RPT ---
[address], [address] EGD PROCEDURE REPORT EXAM DATE: 08/06/2021 PATIENT NAME: Tayla Francis MR#: [id number] BIRTHDATE: 1955 ATTENDING: [address] STATUS: inpatient - [facility] [employer] ATTENDANT: Kristina Ghosh RN INDICATIONS: The patient is a 66 yr old Female here for an EGD due to melenic bleeding, iron deficiency anemia, and weight loss PROCEDURE PERFORMED: EGD with biopsy MEDICATIONS: Per Anesthesia. TOPICAL ANESTHETIC: none CONSENT: The patient understands the risks and benefits of the procedure and understands that these risks include, but are not limited to: sedation, allergic reaction, infection, perforation and/or bleeding. Alternative means of evaluation and treatment include, among others: physical exam, x-rays, and/or surgical intervention. The patient elects to proceed with this endoscopic procedure. DESCRIPTION OF PROCEDURE: During intra-op preparation period all mechanical medical equipment was checked for proper function. Hand hygiene and appropriate measures for infection prevention was taken. Procedure, possible complications, and alternatives including but not limited to the possibility of bleeding, perforation, tear, infection, sepsis, need for surgery, need for blood transfusion, and anesthesia related complications were explained to the patient. After the risks, benefits and alternatives of the procedure were thoroughly explained, Informed consent was verified, confirmed and timeout was successfully executed by the treatment team. The patient was placed in the left lateral position. The patient was anesthetized with topical anesthesia. Through the anesthetized oropharyngeal area, the scope was passed without any difficulty. The [id number] ([id number]) endoscope was introduced through the mouth and advanced to the third portion of the duodenum. Retroflexed views revealed a small hiatal hernia. The gastroscope was then slowly withdrawn and removed. A small hiatal hernia was found. Mild gastritis was found in the antrum. Multiple biopsies were obtained and sent to pathology. Small bowel biopsies obtained with history of iron deficiency anemia. Multiple biopsies were obtained and sent to pathology. ADVERSE EVENTS: There were no complications. IMPRESSIONS: 1. Small hiatal hernia 2. Mild gastritis in the antrum, s/p biopsies 3. Small bowel biopsies obtained with history of iron deficiency anemia RECOMMENDATIONS: 1. await biopsy results 2. acid suppression therapy REPEAT EXAM: [address] Dr eSigned: [address]ico [address] Dr 08/06/2021 3:16 PM cc: Christ Quigley M.D. CPT CODES: ICD9 CODES: PATIENT NAME: Tayla Francis MR#: [id number]
--- NOTE | 2021-08-06 15:52 | ENDO RPT ---
[address], [address] COLONOSCOPY PROCEDURE REPORT EXAM DATE: 08/06/2021 PATIENT NAME: Tayla Francis MR #: [id number] BIRTHDATE: 1955 ATTENDING: [address] STATUS: inpatient - [facility] PRESS LOADER: Kristina Ghosh RN INDICATIONS: The patient is a 66 yr old Female here for a colonoscopy due to iron deficiency anemia, melenic bleeding, weight loss, and abnormal CT of abdomen revealing 4.4 cm mass in the ascending colon PROCEDURE PERFORMED: Colonoscopy with biopsy, Colonoscopy with snare polypectomy, and Colon w/ endoclip MEDICATIONS: Per Anesthesia. ESTIMATED BLOOD LOSS: None CONSENT: The patient understands the risks and benefits of the procedure and understands that these risks include, but are not limited to: sedation, allergic reaction, infection, perforation and/or bleeding. Alternative means of evaluation and treatment include, among others: physical exam, x-rays, and/or surgical intervention. The patient elects to proceed with this endoscopic procedure. DESCRIPTION OF PROCEDURE: During intra-op preparation period all mechanical medical equipment was checked for proper function. Hand hygiene and appropriate measures for infection prevention was taken. Procedure, possible complications, alternatives including, but not limited to possibility of bleeding, perforation, tear, infection, sepsis, need for surgery, need for blood transfusion, were explained to the patient. After the risks, benefits and alternatives of the procedure were thoroughly explained, Informed consent was verified, confirmed and timeout was successfully executed by the treatment team. The patient was placed in the left lateral position. A digital rectal exam was performed and revealed several skin tags. After appropriate level of anesthesia, the scope was passed. The EG-[id number] ([id number]) and [id number] ([id number]) endoscope was introduced through the anus and advanced to the ascending colon. The quality of the prep was fair. The instrument was then slowly withdrawn as the colon was fully examined. Scope withdrawal time was 9 minutes. COLON FINDINGS: A circumferential fungating near obstructing mass (unable to intubate past), measuring 4 X 4cm in size, with friable surfaces was found in the ascending colon. Multiple biopsies of the lesion were performed using cold forceps. A smooth pedunculated polyp measuring 1.5 cm in size was found in the rectum. A polypectomy was performed using snare cautery. The wound at the site was closed by placing hemoclips. One (1) placement was made. There was no blood loss from maneuver. One (1) placement was made. There was no blood loss from maneuver. Mild diverticulosis was noted in the sigmoid colon. No bleeding was noted from the diverticulosis. Small internal hemorrhoids were found. Retroflexed views revealed small hemorrhoids. The scope was then completely withdrawn from the patient and the procedure terminated. ADVERSE EVENTS: There were no complications. IMPRESSIONS: 1. Circumferential near obstructing mass (unable to intubate pass), measuring 4 X 4cm in size, in the ascending colon; multiple biopsies of the lesion were performed 2. 1.5 cm pedunculated polyp in the rectum; polypectomy was performed using snare cautery; the wound at the site was closed by placing hemoclips 3. Mild diverticulosis in the sigmoid colon 4. Small internal hemorrhoids RECOMMENDATIONS: 1. await biopsy results 2. surgery consult RECALL: Return in 1 year(s) for Colonoscopy. [address] Dr eSigned: Chico Jacob Dr 08/06/2021 3:51 PM cc: Christ Quigley CPT CODES: ICD9 CODES: 1. 455.9 Residual hemorrhoidal skin tags 2. 239.0 Neoplasm of unspecified nature of digestive system 3. 569.0 Anal and rectal polyp PATIENT NAME: Tayla Francis MR#: [id number]
[2021-08-06 17:47] LABS: Urine Appearance CLEAR (Clear); Urine Blood NEGATIVE (Negative); Urine Color DK YELLOW (Yellow); Urine Glucose NEGATIVE (Negative); Urine Protein TRACE (Negative); Urine Specific Gravity >=1.030 (1.005-1.030); Urine Urobilinogen 0.2 mg/dL (0.2-1.0)
[2021-08-06 18:10] LABS: Urine Bilirubin NEGATIVE (Negative); Urine Microscopic Reflex ORDER UMIC
[2021-08-06 18:26] LABS: Urine Amorphous Sediment 2+ /HPF (NONE SEEN); Urine Bacteria 20-50 /HPF (<20); Urine Mucus 2+ /HPF (NONE SEEN); Urine RBC <5 /HPF (NONE SEEN)
[2021-08-06] MEDS: ENSURE ENLIVE 237 ML CAN PO SCH (20:55)
--- NOTE | 2021-08-06 23:11 | CON ---
Date of Consultation: 08/06/2021 Reason For Consultation: Iron-deficiency anemia, melena, weight loss, and ascending colon mass on CT. Hpi: The patient is a 66-year-old white female with history of iron deficiency anemia, presented to our Emergency room with abnormal labs including a hemoglobin of 5.1, hematocrit of 16.7, platelets of 905, potassium was down to 2.5. CT scan, which revealed a 4.4 cm mass in ascending colon with a 5 mm lymph node and nodule in the right lung base and a 17 mm nodule in the right lower lobe in addition to multiple hepatic lesions suggesting colonic neoplasm and metastasis to the lungs and liver. This was discussed with the patient. Due to her severe anemia, patient received 2 units of blood and hemoglobin now is 7.6. She was supposed to have colonoscopy as an outpatient with outside physician in [place], however, due to the abnormal labs, was admitted to the hospital here in [place]. Past Medical History: Significant for hypertension, iron deficiency anemia, and . Medications: At home include iron sulfate. Allergies: NKDA. Social History: She is . One son. No tobacco. Occasional alcohol. She is from [place]. Family History: Father of stroke and chronic kidney disease. Mother of pneumonia at the age of 94. Maternal grandmother at age 98. Review of Systems: The patient has fatigue, melena, weight loss, anorexia, anemia. She denies any hematemesis, coffee-grounds emesis, hemoptysis, hematuria, dysuria, polydipsia, hematochezia, but she does have melena. She has lost 50 pounds over the past 4 months. She denies any chest pain, short of breath, seizure, syncope, muscle aches, joint aches, backaches, depression, anxiety. Physical Examination: Vital Signs: Patient is 5 foot, 96 pounds, BMI of 18.8 kg/m2. General: She is a slightly mesomorphic female, lying in bed, in no acute distress, though she has lost 50 pounds, was obese before. HEENT: Normocephalic, atraumatic. Anicteric. Pupils equal, round, and reactive to light. Extraocular movements are intact. Oropharynx is clear. Neck: Supple. No mass. Respiratory: Clear to auscultation bilaterally. Cardiac: Regular rate and rhythm. No gallops heard. Abdomen: Positive bowel sounds. Soft, nontender, nondistended. No hepatosplenomegaly. Extremities: No clubbing, cyanosis, or edema. 2+ pulses. Neurologic: x3. Grossly nonfocal. 5/5 motor. Sensation intact to light touch. Laboratory Data: On admission, yesterday patient white count 13.4, hemoglobin 5.1, hematocrit 16.7, MCV of 60.4, platelet count 905, polys of 74%, lymphocytes 18%, monocytes 7%, eosinophils 1%. Today, she has a hemoglobin of 7.6 up from 5.1 after 2 units packed RBCs. PT of 14.4, INR of 1.30, PTT of 29.5. Today, she has a sodium 138. Potassium of 2.8, repeat of 3.7. Chloride 104, bicarb 25, BUN of 9, creatinine of 1.53, glucose 78, calcium 7.9, magnesium 2.5, total bilirubin 1.0, AST of 19, ALT of 11, alkaline phosphatase 176, total protein 5.6, and troponin I . Total protein 6.3, albumin 2.0, lipase of 101, TSH of 3.81, free T4 of 0.96. UA with serology. COVID-19 test was negative. Influenza A and B testing was negative. CT abdomen and pelvis revealed a 4.4 cm mass in the ascending colon and nodule in the right lower lobe as stated and the right base of the lung and a nodule on the right lung base. There are multiple hypodense lesions up to 4.5 cm mass in the proximal ascending colon with a couple of adjacent small lymph nodes. Cholelithiasis is noted. 5 mm nodule in the right lung base, 17 mm nodule in the right lower lobe. 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 Impression: 1. Iron deficiency anemia. Hemoglobin down to 5.1 on admission, MCV of 60.4 indicative of iron deficiency and she is already on iron supplements at home, which would have been effective. 2. Melena, prolonged. 3. Weight loss, 50 pounds over the past 4 months with anorexia. 4. 4.4 cm ascending colon mass but nearby large lymph nodes and lesions in the liver, lung, indicative of metastatic cancer. 5. History of hypertension, , anemia, . Recommendations: 1. EGD, colonoscopy. 2. Serial H and H, and transfuse p.r.n.. 3. Continue with resuscitative measures. ROBLES/NATHANIEL Voice ID: [id number] Report ID: [id number] LUCIANO
[2021-08-07 04:12] LABS: Absolute Lymphocytes (CBC) 2.1 K/uL (0.7-4.9); Hematocrit 24.2 % (36.0-45.0); Lymphocytes % 11.4 % (15.3-44.8); MPV 6.3 fL (7.6-11.3); RBC Red Blood Cell Count 3.54 M/uL (3.86-4.86)
[2021-08-07 04:50] LABS: AST/SGOT 19 U/L (15-37); Alkaline Phosphatase 177 U/L (45-117); BUN Blood Urea Nitrogen 10 mg/dL (7-18); Bicarbonate 26 mmol/L (21-32); Bilirubin Total 0.6 mg/dL (0.2-1.0); Glucose Level 98 mg/dL (74-106); Potassium 3.9 mmol/L (3.5-5.1); Protein, Total 6.1 g/dL (6.4-8.2); Sodium Level 135 mmol/L (136-145)
[2021-08-07 04:51] LABS: ALT/SGPT < 10 U/L (12-78)
[2021-08-07] MEDS: ENSURE ENLIVE 237 ML CAN PO SCH ×2 (09:00→20:24)
[2021-08-07] MEDS ORDERED: POTASSIUM CL SA 10 MEQ TAB PO ONE (09:00)
[2021-08-07] MEDS: PANTOPRAZOLE 40 MG INJ IVP SCH ×2 (09:29→20:23)
--- NOTE | 2021-08-07 11:19 | P.PN ---
Subjective Date of Service: 08/07/21 Chief Complaint: Anemia, hypokalemia Subjective: No new changes, Improving Physical Examination - Vital Signs Temperature: 99.1 F Blood Pressure: 119/56 Pulse: 80 Respirations: 14 Pulse Ox (%): 94 - Physical Exam General: Alert, Oriented x3 HEENT: Atraumatic, Normocephalic Neck: Supple Respiratory: Normal air movement Cardiovascular: Regular rate/rhythm, Normal S1 S2 Gastrointestinal: Soft and benign Neurological: Normal speech - Studies Laboratory Data (last 24 hrs) 08/06/21 14:07: Potassium 3.7 Assessment And Plan - Plan Microcytic anemia suspect NATHALIA/colonic neoplasm 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 We will continue q. 6 H&H monitoring. We will continue transfusion if Hb drops less than 7.0. Suspected colonic neoplasm with metastasis: CT demonstrated ascending colon mass with suspected metastasis to right lung/liver. For possible EGD/Colonoscopy for management/work-up of suspected colonic malignancy as per GI. Dr Jacob following. Hypokalemia: resolved. We will follow closely. DVT PPX: SCD Code status: Full
--- NOTE | 2021-08-07 16:48 | P.PN ---
Subjective Date of Service: 08/07/21 Chief Complaint: Anemia NATHALIA, hgb 5.1, MCV 60, hypokalemia, abn CT -> asc colon mass Subjective: Improving Review of Systems 10-point ROS is otherwise unremarkable General: Weakness, Malaise Neurological: Weakness Physical Examination - Vital Signs Temperature: 98.4 F Blood Pressure: 134/62 Pulse: 77 Respirations: 12 Pulse Ox (%): 96 - Physical Exam General: Alert, In no apparent distress, Cooperative HEENT: Atraumatic, Normocephalic, PERRLA, EOMI Neck: Supple Respiratory: Normal air movement Cardiovascular: Normal pulses Gastrointestinal: Soft and benign, Non-distended, No tenderness, No rebound, No guarding Neurological: Normal speech, Normal strength at 5/5 x4 extr Assessment And Plan - Current Problems (Diagnosis) (1) Anemia, iron deficiency Current Visit: Yes Status: Acute (2) Melena Current Visit: Yes Status: Acute (3) Abnormal CT of the abdomen Current Visit: Yes Status: Acute (4) Ascending colon malignant neoplasm Current Visit: Yes Status: Acute (5) Weight loss Current Visit: Yes Status: Acute Comment: 50 lbs in past 4 months (6) Colon polyp Current Visit: Yes Status: Acute - Plan REC: 1) await pathology of colon mass and colon polyps from colonoscopy yesterday 2) surgery consult for colon mass with near obstruction 3) continue acid suppression 4) transfuse 2 more urits PRBCs in preparation for surgery if okay with IM and surgery (hgb now at 7)
[2021-08-08 04:30] LABS: BUN Blood Urea Nitrogen 8 mg/dL (7-18); Bicarbonate 27 mmol/L (21-32); Glucose Level 88 mg/dL (74-106); Sodium Level 135 mmol/L (136-145)
--- NOTE | 2021-08-08 07:39 | P.PN ---
Subjective Date of Service: 08/08/21 Chief Complaint: Anemia NATHALIA, hgb 5.1, MCV 60, hypokalemia, abn CT -> asc colon mass Subjective: No new changes, Improving Physical Examination - Vital Signs Temperature: 97.8 F Blood Pressure: 130/62 Pulse: 82 Respirations: 16 Pulse Ox (%): 97 - Physical Exam General: Alert, Oriented x3 HEENT: Atraumatic, Normocephalic Neck: Supple Respiratory: Normal air movement Cardiovascular: Regular rate/rhythm, Normal S1 S2 Gastrointestinal: Soft and benign Neurological: Normal speech Assessment And Plan - Plan Microcytic anemia suspect NATHALIA/colonic neoplasm Suspected colonic neoplasm with metastasis Plan: Microcytic anemia suspect NATHALIA/colonic neoplasm: Had endoscopy done. awaiting pathology report. we will keep Hb >7.0. Suspected colonic neoplasm with metastasis: GI following. Had endoscopy done. awaiting pathology. Gen Surgery consulted. For possible colon mass excision. Hypokalemia: resolved. We will follow closely. DVT PPX: SCD Code status: Full
[2021-08-08] MEDS: ENSURE ENLIVE 237 ML CAN PO SCH ×2 (09:00→20:34)
--- NOTE | 2021-08-08 09:16 | P.PN ---
Subjective Date of Service: 08/08/21 Chief Complaint: Anemia NATHALIA, hgb 5.1, MCV 60, hypokalemia, abn CT -> asc colon mass Subjective: New changes (Feels well without complaint, sitting in bed, reading paper. Does not think she spoke with surgeon. Increasing WBC 13.4 to 16.2 to 18.2 with possible UTI.) Review of Systems Unremarkable Physical Examination - Vital Signs Temperature: 98.0 F Blood Pressure: 121/71 Pulse: 75 Respirations: 14 Pulse Ox (%): 95 - Physical Exam General: Alert, In no apparent distress, Oriented x3, Cooperative HEENT: Atraumatic, Normocephalic, PERRLA, EOMI Neck: Supple Respiratory: Normal air movement Cardiovascular: Normal pulses Gastrointestinal: Soft and benign, No tenderness, No rebound, No guarding Neurological: Normal speech, Normal strength at 5/5 x4 extr Assessment And Plan - Current Problems (Diagnosis) (1) Anemia, iron deficiency Current Visit: Yes Status: Acute (2) Melena Current Visit: Yes Status: Acute (3) Abnormal CT of the abdomen Current Visit: Yes Status: Acute (4) Ascending colon malignant neoplasm Current Visit: Yes Status: Acute Comment: Near obstructing with probable mets to liver and lungs. (5) Weight loss Current Visit: Yes Status: Acute Comment: 50 lbs in past 4 months (6) Colon polyp Current Visit: Yes Status: Acute - Plan REC: 1) await pathology of colon mass and colon polyps from colonoscopy yesterday 2) surgery consult for colon mass with near obstruction 3) continue acid suppression 4) transfuse 2 more urits PRBCs in preparation for surgery if okay with IM and surgery (hgb now at 7)
--- NOTE | 2021-08-08 09:19 | P.PN ---
Subjective Date of Service: 08/08/21 Chief Complaint: Anemia NATHALIA, hgb 5.1, MCV 60, hypokalemia, abn CT -> asc colon mass Subjective: New changes (Feels well without complaint, sitting in bed, reading paper. Does not think she spoke with surgeon. Increasing WBC 13.4 to 16.2 to 18.2 with possible UTI (CXR revealed nodules).) Review of Systems Unremarkable Physical Examination - Vital Signs Temperature: 98.0 F Blood Pressure: 121/71 Pulse: 75 Respirations: 14 Pulse Ox (%): 95 - Physical Exam General: Alert, In no apparent distress, Oriented x3, Cooperative HEENT: Atraumatic, Normocephalic, PERRLA, EOMI Neck: Supple Respiratory: Normal air movement Cardiovascular: Normal pulses Gastrointestinal: Soft and benign, No tenderness, No rebound, No guarding Neurological: Normal speech, Normal strength at 5/5 x4 extr Assessment And Plan - Current Problems (Diagnosis) (1) Anemia, iron deficiency Current Visit: Yes Status: Acute (2) Melena Current Visit: Yes Status: Acute (3) Abnormal CT of the abdomen Current Visit: Yes Status: Acute (4) Ascending colon malignant neoplasm Current Visit: Yes Status: Acute Comment: Near obstructing with probable mets to liver and lungs. (5) Weight loss Current Visit: Yes Status: Acute Comment: 50 lbs in past 4 months (6) Colon polyp Current Visit: Yes Status: Acute - Plan REC: 1) await pathology of colon mass and colon polyps from colonoscopy yesterday 2) surgery consult for colon mass with near obstruction 3) continue acid suppression 4) transfuse 2 more urits PRBCs in preparation for surgery if okay with IM and surgery (hgb now at 7) 5) check blood cultures 6) start IV antibiotics
[2021-08-08] MEDS: PANTOPRAZOLE 40 MG INJ IVP SCH ×2 (09:27→20:34)
[2021-08-08] MEDS: AMPICILLIN/SULBACT 3 GM in NA CHLORIDE 0.9% 100 ML IVPB SCH ×2 (12:28→17:24)
[2021-08-09] MEDS: AMPICILLIN/SULBACT 3 GM in NA CHLORIDE 0.9% 100 ML IVPB SCH ×4 (00:29→17:37)
[2021-08-09] MEDS: PANTOPRAZOLE 40 MG INJ IVP SCH ×2 (07:41→20:48)
[2021-08-09] MEDS: ENSURE ENLIVE 237 ML CAN PO SCH ×2 (07:42→20:48)
--- NOTE | 2021-08-09 14:04 | P.CNS ---
Date of Consult: 08/09/21 PC: This 66-year-old male presented to the emergency room due to some abnormal labs, and anemia that was detected as outpatient. HPC: Patient had been seen earlier this year. She was supposed to have it evaluated with a colonoscopy and EGD in April of this year. Unfortunately it did not occur. Her current hemoglobin in the ER is 5.1 with hematocrit of [address] scan was performed, which revealed a 4.4 ascending colon mass with some nodules in the right lung base as well as metastatic disease to her liver. PSHx: Previous PMHx: Hypertension Social Hx: No known allergies Sys R: States she has been feeling poorly since about February. Has been low on her energy. Appetite has been good. Feels that she has lost some weight. Has not had any urinary symptoms. States that her energy just feels low as well. O/E: Awake alert cute distress at the moment HEENT: Not jaundiced Chest: Chest movement equal bilaterally Abd: Soft nontender no masses are palpable [place]: Intact Data: Hemoglobin is 7 today, CT scan shows lesion of the ascending colon liver and lung mets Impression: Partially obstructing mass in the right colon that has been bleeding and causing intermittent Plan: I have reviewed the patient's chart, discussed extensively with the patient her surgical options. She requires a right hemicolectomy at this time possibly be able to do a percutaneous liver biopsy at the same time. We will also transfuse her after the surgery to get her blood count back up. Central venous access Ocampo catheters were explained. She understands and wants us to proceed. We will give her a bag citrate prep today, full liquids, and the OR at 7:30 AM in the morning. She understands and wishes to proceed.
[2021-08-09] MEDS ORDERED: MAGNESIUM CITRATE 300 ML BOT PO SCH (17:00)
[2021-08-10] MEDS: AMPICILLIN/SULBACT 3 GM in NA CHLORIDE 0.9% 100 ML IVPB SCH ×4 (02:07→18:09)
[2021-08-10 06:08] LABS: Absolute Lymphocytes (CBC) 1.9 K/uL (0.7-4.9); Hematocrit 23.6 % (36.0-45.0); Lymphocytes % 13.1 % (15.3-44.8); MPV 6.3 fL (7.6-11.3); RBC Red Blood Cell Count 3.39 M/uL (3.86-4.86)
[2021-08-10 06:21] LABS: AST/SGOT 21 U/L (15-37); Albumin 1.9 g/dL (3.4-5.0); Alkaline Phosphatase 181 U/L (45-117); BUN Blood Urea Nitrogen 6 mg/dL (7-18); Bicarbonate 25 mmol/L (21-32); Bilirubin Total 0.5 mg/dL (0.2-1.0); Glucose Level 91 mg/dL (74-106); Magnesium 2.4 mg/dL (1.8-2.4); NT PRO-BNP 364 pg/mL (<125); Phosphorus 3.6 mg/dL (2.5-4.9); Potassium 3.7 mmol/L (3.5-5.1); Protein, Total 5.8 g/dL (6.4-8.2); Sodium Level 136 mmol/L (136-145)
[2021-08-10 06:25] LABS: ALT/SGPT < 10 U/L (12-78)
[2021-08-10] MEDS ORDERED: Ringers Lactate 1,000 ML IV ONE ×2 (06:41→08:58)
[2021-08-10] MEDS ORDERED: MIDAZOLAM HCL 2 MG/2 ML INJ ONE (06:53)
[2021-08-10] MEDS ORDERED: propofoL 200 MG/20 ML VIAL IV ONE (06:53)
[2021-08-10] MEDS ORDERED: LIDOCAINE 2% MPF 5 ML VIAL ONE (06:54)
[2021-08-10] MEDS ORDERED: FENTANYL CITR 100 MCG/2 ML ONE ×2 (06:54→09:20)
[2021-08-10] MEDS ORDERED: NEOSTIGMINE 1 MG/ML -5 ML ONE (06:56)
[2021-08-10] MEDS ORDERED: GLYCOPYRROLATE 0.2 MG/ML SYR ONE (06:56)
[2021-08-10] MEDS ORDERED: dexAMETHasone 10 MG/ML VIAL ONE (06:56)
[2021-08-10] MEDS ORDERED: ROCURONIUM 50 MG/5 ML VIAL IV ONE (06:56)
[2021-08-10] MEDS ORDERED: ONDANSETRON 4 MG/2 ML VIAL ONE (06:56)
--- NOTE | 2021-08-10 07:54 | P.PN ---
Date of Service: 08/10/21 S: Patient comfortable and relaxed this morning, no further questions. Says she is ready to go. O: Vital signs stable, hemoglobin 7.1, has obviously elevated CEA level A: Prepare for right hemicolectomy today P: L taken to the operating room today for exploratory laparotomy with a right hemicolectomy. The risks of this procedure have been discussed. The possibility of bleeding, infection, injury to bowel blood vessels and surrounding structures were explained. The possibility of anastomotic leak, abscess formation, need for further surgeries and procedures and the fact that this is not curative for explained. We will also place a central line for alimentation after the procedure, and if possible will try and take a liver biopsy if any of the mets are easily accessible. She will most likely leave a blood transfusion in the postoperative period and this was explained again to the patient. She understands and wants to proceed.
[2021-08-10] MEDS: ENSURE ENLIVE 237 ML CAN PO SCH ×2 (08:22→20:03)
[2021-08-10] MEDS: PANTOPRAZOLE 40 MG INJ IVP SCH ×2 (08:22→20:03)
[2021-08-10] MEDS ORDERED: EPHEDRINE SULF 50 MG/ML VIAL ONE (08:57)
--- NOTE | 2021-08-10 10:18 | P.OP ---
Preoperative diagnosis: Right colon mass Postoperative diagnosis: Right colon mass, metastatic disease to the liver Primary procedure: Right hemicolectomy Secondary procedure: Ileocolic anastomosis Other procedure(s): Placement of central line Anesthesia: General anesthesia Estimated blood loss: Less than 10 cc Operative Technique: The patient brought the operating room and placed supine on the table. After the induction of adequate general endotracheal anesthesia, and the placement of a Ocampo catheter, the abdomen was prepped with a DuraPrep solution and she was draped in the usual aseptic manner. A nasogastric tube was also placed at this time. Attention was turned towards the anterior abdominal wall. A midline incision was made. This was brought down through the skin and subcutaneous tissue. We were now able to identify the midline of the fascia. This was opened and the peritoneum was grabbed sharply incised to allow access to the peritoneal cavity. With a guarding finger placed into the peritoneum we will use the Bovie to open the fascia for the full length of our incision. Attention was turned towards intra-abdominal contents. A hand placed into the peritoneal cavity unfortunately revealed the patient had a large amount of metastatic disease to both left and right lobes of the liver. The colon was traced down from the right lower quadrant. We could feel a mass just above the cecum which was approximately 4 cm in size. The bowel small bowel was now run from the ligament of Treitz down into the ilio cecal valve. There were some adhesions of the omentum to the anterior abdominal bowel wall which were released. Most likely secondary to her in the past. Attention was turned towards the right colon. The white line of Toldt was opened on the right side. Using gentle dissection we were able to reflect the colon and its mesentery off of Gerota's fascia and sweep it medially. We did not feel any large lymph nodes along the colic artery. The junction of the ileum with the cecum was identified. We transected the ileum where we could see she had a strong vessel coming down to support that area for anastomosis. The testing h aving been divided we now turned towards the transverse colon. Again transilluminated we were able to identify a good area with vasculature. Just proximal to this we opened a window in the mesentery placed our GI across this and transected the transverse colon. The hepatic flexure came down quite easily and we were able to sweep all of this medially. Great care was changed taken to identify the duodenum and to avoid injury or devascularizing this area. The mesentery of the colon was now taken down. We found the right colic vessel this was traced back to just about the aorta. We left a margin as there were no lymph nodes in this area and at this point we are essentially just relieving her obstruction. The vessel was transected both with the ligature and a free tie of silk was placed upon it. The specimen was now handed off the field. The abdomen was now inspected to ensure adequate hemostasis. The pelvis was aspirated and the right lower quadrant was again blotted to ensure there was no bleeding in these areas. We now took the distal ileum. This was brought up through this portion of the transverse colon. Along the tenia a small incision was made. This was widened using the hemostat. The large portion of the GI was now placed into this portion of the colon. The distal ileum again on the anterior mesenteric border had a small hemostat used to open this area. The smaller bar of the ADELIA was placed into it. Bringing these to and opposition we were now able to form a [id number] functional end and anastomosis with the stapler. The first time we did this I did not like the appearance of the anastomosis that we had left a small bulge on the colonic side that appeared like a wide necked diverticulum. Because of this this area was resected and we repeated this maneuver. The second time we got much more aesthetically pleasing anastomosis. The open end was now closed again with the ADELIA forming our [id number] functional end-to-end anastomosis. A stay suture of chromic was used to approximate the antimesenteric border to the supporting structures of the colon to take the pressure off of our anastomosis. This part of the bowel was then returned toward the peritoneal cavity. Once again the small bowel was run from the ligament of Treitz to our anastomotic site ensuring that we laid it back in good anatomical position. No other intra-abdominal pathology pathology apart from the obvious liver mass was noted. The nasogastric tube was palpated and found to be in good position. At this point the fascia of the anterior abdominal wall was closed using a running stitch of 2 oh looped nylon. [place] were applied to the skin. After having applied sterile dressing, attention was turned towards the left upper portion of the chest. The DuraPrep skin prep was done. A finder needle was used to cannulate the left subclavian vein. A guidewire was passed down through this. We were able to pass a dilator over the guidewire and inserted our triple-lumen catheter. The catheter was then flushed in the usual manner, sutured in place, and a sterile dressing applied. At the end of the procedure she was in a stable condition was sent to the rec overy room. Needle sponge and instrument count were correct. No drains were placed. We will leave the Ocampo catheter until tomorrow. The nasogastric tube and the central line position will be confirmed with a chest x-ray in recovery. Estimated blood loss less than 20 cc. Drain(s): Nasogastric Transferred to: Recovery Room Condition: Good
[2021-08-10] MEDS: HYDROMORPHONE HCL 1 MG/ML INJ ONE ×2 (10:52→10:57)
[2021-08-10 11:01] LABS: Hematocrit 26.6 % (36.0-45.0)
[2021-08-10] MEDS ORDERED: HYDROMORPHONE HCL 1 MG/ML INJ ONE (11:12)
[2021-08-10] MEDS ORDERED: MORPHINE 4 MG/ML SYR IV PRN (12:00)
--- NOTE | 2021-08-10 12:27 | RAD REPORT ---
EXAM DESCRIPTION: RAD - Chest Single View - 08/10/2021 12:20 pm CLINICAL HISTORY: CENTRAL LINE PLACEMENT Chest pain. COMPARISON: Chest Single View dated 08/05/2021 FINDINGS: Portable technique limits examination quality. Enteric tube descends into the stomach. A left-sided central venous catheter has been placed. No pneu mothorax. The tip projects over the upper mediastinum along the midline. This may be within the SVC a nd an appear is along the midline due to patient rotation. However, this is difficult to confirm with certainty. Recommend follow-up two views of the chest for better visualization of the line.
[2021-08-10] MEDS ORDERED: KETOROLAC 30 MG/ML INJ IV ONE (17:41)
--- NOTE | 2021-08-10 17:48 | P.PN ---
Subjective Date of Service: 08/10/21 Chief Complaint: Anemia NATHALIA, hgb 5.1, MCV 60, hypokalemia, abn CT -> asc colon mass Subjective: Improving (S/p right hemicolectomy today and now post-op in ICU for close monitoring until tomorrow. Sitting in bed, talking to family on phone, in no distress.) Review of Systems 10-point ROS is otherwise unremarkable Gastrointestinal: Abdominal Pain (post-op mild) Physical Examination - Vital Signs Temperature: 97.5 F Blood Pressure: 117/62 Pulse: 77 Respirations: 13 Pulse Ox (%): 100 - Physical Exam General: Alert, In no apparent distress, Oriented x3, Cooperative HEENT: Atraumatic, Normocephalic, PERRLA, EOMI Neck: Supple Respiratory: Normal air movement Cardiovascular: Normal pulses Gastrointestinal: Tenderness (mild post-op) Assessment And Plan - Current Problems (Diagnosis) (1) Anemia, iron deficiency Current Visit: Yes Status: Acute (2) Melena Current Visit: Yes Status: Acute (3) Abnormal CT of the abdomen Current Visit: Yes Status: Acute (4) Ascending colon malignant neoplasm Current Visit: Yes Status: Acute Comment: Near obstructing with probable mets to liver and lungs. (5) Weight loss Current Visit: Yes Status: Acute Comment: 50 lbs in past 4 months (6) Colon polyp Current Visit: Yes Status: Acute - Plan REC: 1) diet as per surgery 2) colonoscopy in 1 year 3) oncology consult
[2021-08-10] MEDS ORDERED: NA CHLORIDE 0.9% 250 ML IV ONE (18:27)
[2021-08-10] MEDS: NA CHLORIDE 0.9% 1,000 ML IV SCH (18:36)
[2021-08-11] MEDS: AMPICILLIN/SULBACT 3 GM in NA CHLORIDE 0.9% 100 ML IVPB SCH ×4 (00:45→17:31)
[2021-08-11] MEDS: ENSURE ENLIVE 237 ML CAN PO SCH ×2 (08:44→21:00)
[2021-08-11] MEDS: NA CHLORIDE 0.9% 1,000 ML IV SCH (08:44)
[2021-08-11] MEDS: PANTOPRAZOLE 40 MG INJ IVP SCH ×2 (08:44→21:16)
[2021-08-11 09:08] LABS: Absolute Lymphocytes (CBC) 1.1 K/uL (0.7-4.9); Hematocrit 26.3 % (36.0-45.0); Lymphocytes % 6.2 % (15.3-44.8); MPV 6.5 fL (7.6-11.3); RBC Red Blood Cell Count 3.68 M/uL (3.86-4.86)
[2021-08-11 09:20] LABS: Albumin 1.8 g/dL (3.4-5.0); Bilirubin Total 0.4 mg/dL (0.2-1.0); Potassium 3.9 mmol/L (3.5-5.1); Protein, Total 5.8 g/dL (6.4-8.2)
[2021-08-11] MEDS ORDERED: MINERAL OIL 30 ML UCUP FT ONE (09:23)
[2021-08-11 09:38] LABS: Anisocytosis 2+; Blood Morphology Comment NOTED (NOT SEEN); Hypochromasia 1+; Platelet Estimate ADEQ; White Blood Cell Scan OK (OK)
[2021-08-11] MEDS ORDERED: HYDROCODONE/APAP 7.5/325 MG TAB PO PRN (16:12)
[2021-08-11] MEDS ORDERED: BENZONATATE 100 MG CAP PO PRN (16:14)
[2021-08-12] MEDS: NA CHLORIDE 0.9% 1,000 ML IV SCH ×2 (01:21→11:54)
[2021-08-12] MEDS: AMPICILLIN/SULBACT 3 GM in NA CHLORIDE 0.9% 100 ML IVPB SCH ×5 (01:21→23:16)
[2021-08-12] MEDS: PANTOPRAZOLE 40 MG INJ IVP SCH ×2 (09:03→23:16)
[2021-08-12] MEDS: ENSURE ENLIVE 237 ML CAN PO SCH ×2 (09:04→21:00)
--- NOTE | 2021-08-12 10:41 | P.PN ---
Date of Service: 08/09/21 Subjective Subjective: Patient clinically doing okay. Scheduled for surgery in a.m. Physical Examination - Vital Signs Reviewed - Physical Exam General: Alert, Oriented x3 HEENT: Atraumatic, Normocephalic Neck: Supple Respiratory: Normal air movement Cardiovascular: Regular rate/rhythm, Normal S1 S2 Gastrointestinal: Soft and benign Neurological: Normal speech Assessment And Plan - Plan Microcytic anemia suspect NATHALIA/colonic neoplasm Suspected colonic neoplasm with metastasis Plan: Microcytic anemia suspect NATHALIA/colonic neoplasm: Plan for partial colectomy Suspected colonic neoplasm with metastasis: GI following. Had endoscopy done. awaiting pathology. Gen Surgery consulted-Dr. Krishnan planning to do surgery in a.m. Hypokalemia: resolved. We will follow closely. DVT PPX: SCD Code status: Full
--- NOTE | 2021-08-12 10:42 | P.PN ---
Date of Service: 08/10/21 Subjective Subjective: Patient scheduled for surgery today. Plan to go to ICU for close monitoring afterwards. Awaiting for pathology results after surgery to determine plan of action. Physical Examination - Vital Signs Reviewed - Physical Exam General: Alert, Oriented x3 HEENT: Atraumatic, Normocephalic Neck: Supple Respiratory: Normal air movement Cardiovascular: Regular rate/rhythm, Normal S1 S2 Gastrointestinal: Soft and benign; nontender and nondistended bowel sounds are positive Neurological: Normal speech Assessment And Plan - Plan Microcytic anemia suspect NATHALIA/colonic neoplasm Suspected colonic neoplasm with metastasis Plan: Microcytic anemia suspect NATHALIA/colonic neoplasm: Plan for partial colectomy Suspected colonic neoplasm with metastasis: GI following. Had endoscopy done. awaiting pathology. Gen Surgery consulted-Dr. Krishnan planning to do surgery in a.m. Hypokalemia: resolved. We will follow closely. DVT PPX: SCD Code status: Full
--- NOTE | 2021-08-12 10:44 | P.PN ---
Date of Service: 08/11/21 Subjective Subjective: Patient doing well in the postop period; plan to transfer to general medical floor. Awaiting pathology results. Physical Examination - Vital Signs Reviewed - Physical Exam General: Alert, Oriented x3 HEENT: Atraumatic, Normocephalic Neck: Supple Respiratory: Normal air movement Cardiovascular: Regular rate/rhythm, Normal S1 S2 Gastrointestinal: Soft and benign; nontender and nondistended bowel sounds are positive Neurological: Normal speech Assessment And Plan - Plan Microcytic anemia suspect NATHALIA/colonic neoplasm Suspected colonic neoplasm with metastasis Plan: Microcytic anemia suspect NATHALIA/colonic neoplasm: Plan for partial colectomy Suspected colonic neoplasm with metastasis: GI following. Had endoscopy done. awaiting pathology. Gen Surgery consulted-Dr. Krishnan planning to do surgery in a.m. Hypokalemia: resolved. We will follow closely. DVT PPX: SCD Code status: Full
[2021-08-12 12:53] LABS: Absolute Lymphocytes (CBC) 1.4 K/uL (0.7-4.9); Hematocrit 24.8 % (36.0-45.0); Lymphocytes % 8.8 % (15.3-44.8); MPV 6.4 fL (7.6-11.3); RBC Red Blood Cell Count 3.51 M/uL (3.86-4.86)
[2021-08-12 13:04] LABS: BUN Blood Urea Nitrogen 13 mg/dL (7-18); Bicarbonate 19 mmol/L (21-32); Glucose Level 64 mg/dL (74-106); Magnesium 2.4 mg/dL (1.8-2.4); Potassium 3.9 mmol/L (3.5-5.1); Sodium Level 142 mmol/L (136-145)
--- NOTE | 2021-08-12 13:40 | P.PN ---
Date of Service: 08/12/21 S: Patient sitting up at the bedside. Pain is well controlled. No specific complaints apart from being cold at the moment and asking to get put back to bed as she has been out since about 10 AM. O: Incisions are keen clean, vital signs are good. Appears in good spirits A: Surgically stable, still no pathology back but adenocarcinoma very likely. P: Continue current therapy, will slowly advance her diet as she is extremely thirsty. Ambulate. Patient may shower.
--- NOTE | 2021-08-12 19:12 | P.PN ---
Date of Service: 08/12/21 Subjective Subjective: Clinical picture is improved. Clinical symptoms are better. Ambulating really well. Minimal flatus. 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 Status post partial colectomy awaiting pathology. Hypokalemia: resolved. We will follow closely. DVT PPX: SCD Code status: Full
[2021-08-13] MEDS ORDERED: HYDRALAZINE HCL 10 MG TABLET PO ONE (05:26)
[2021-08-13] MEDS: AMPICILLIN/SULBACT 3 GM in NA CHLORIDE 0.9% 100 ML IVPB SCH ×4 (05:59→23:08)
[2021-08-13] MEDS: ENSURE ENLIVE 237 ML CAN PO SCH ×2 (08:43→21:00)
[2021-08-13] MEDS: PANTOPRAZOLE 40 MG INJ IVP SCH ×2 (08:44→21:12)
--- NOTE | 2021-08-13 10:01 | P.PN ---
Date of Service: 08/13/21 S: Patient is already been up ambulating this morning. Has been sitting on the chair. Says she has been coughing up a little bit of phlegm. Complaining that she has no energy and is just more out. O: Incisions are clean, abdomen is soft mildly tympanic. Vital signs are stable, labs are good A: Still has mild postoperative ileus. Otherwise stable status post right hemicolectomy. P: Continue to mobilize patient. Encourage incentive spirometry. We will give patient a Valium tonight to help her sleep. Mineral oil 30 cc 1 time.
[2021-08-13] MEDS ORDERED: DIAZEPAM 5 MG TABLET PO PRN (10:02)
[2021-08-13] MEDS ORDERED: MINERAL OIL 30 ML UCUP PO ONE (11:00)
[2021-08-13 11:42] LABS: AST/SGOT 21 U/L (15-37); Albumin 1.9 g/dL (3.4-5.0); Alkaline Phosphatase 146 U/L (45-117); BUN Blood Urea Nitrogen 9 mg/dL (7-18); Bicarbonate 25 mmol/L (21-32); Bilirubin Total 0.4 mg/dL (0.2-1.0); Glucose Level 128 mg/dL (74-106); Lipase 62 U/L (73-393); Magnesium 2.1 mg/dL (1.8-2.4); Protein, Total 6.1 g/dL (6.4-8.2); Sodium Level 141 mmol/L (136-145)
[2021-08-13 11:44] LABS: ALT/SGPT < 10 U/L (12-78)
[2021-08-13] MEDS ORDERED: POTASSIUM 25 MEQ EFFERV TAB PO ONE (17:00)
[2021-08-13] MEDS: ONDANSETRON 4 MG/2 ML VIAL IV PRN (18:29)
[2021-08-13] MEDS: HYDRALAZINE HCL 10 MG TABLET PO SCH (21:12)
[2021-08-13] MEDS ORDERED: POTASSIUM CL SA 10 MEQ TAB PO ONE (23:00)
[2021-08-14] MEDS: AMPICILLIN/SULBACT 3 GM in NA CHLORIDE 0.9% 100 ML IVPB SCH ×4 (05:21→23:33)
[2021-08-14 06:54] LABS: Absolute Lymphocytes (CBC) 1.7 K/uL (0.7-4.9); Hematocrit 26.7 % (36.0-45.0); Lymphocytes % 9.6 % (15.3-44.8); MPV 6.5 fL (7.6-11.3); RBC Red Blood Cell Count 3.79 M/uL (3.86-4.86)
[2021-08-14 07:02] LABS: AST/SGOT 22 U/L (15-37); Albumin 1.9 g/dL (3.4-5.0); Alkaline Phosphatase 137 U/L (45-117); BUN Blood Urea Nitrogen 7 mg/dL (7-18); Bicarbonate 27 mmol/L (21-32); Bilirubin Total 0.5 mg/dL (0.2-1.0); Glucose Level 103 mg/dL (74-106); Magnesium 2.3 mg/dL (1.8-2.4); NT PRO-BNP 1103 pg/mL (<125); Potassium 3.9 mmol/L (3.5-5.1); Sodium Level 140 mmol/L (136-145)
[2021-08-14 07:10] LABS: ALT/SGPT < 10 U/L (12-78)
[2021-08-14] MEDS: HYDRALAZINE HCL 10 MG TABLET PO SCH ×2 (08:23→20:48)
[2021-08-14] MEDS: ENSURE ENLIVE 237 ML CAN PO SCH ×2 (08:24→20:49)
[2021-08-14] MEDS: PANTOPRAZOLE 40 MG INJ IVP SCH ×2 (08:25→20:50)
[2021-08-14 11:28] LABS: Anisocytosis 2+; Blood Morphology Comment NOTED (NOT SEEN); Hypochromasia 1+; Platelet Estimate INCR; White Blood Cell Scan OK (OK)
[2021-08-15] MEDS: ONDANSETRON 4 MG/2 ML VIAL IV PRN ×2 (01:39→11:51)
[2021-08-15] MEDS: AMPICILLIN/SULBACT 3 GM in NA CHLORIDE 0.9% 100 ML IVPB SCH ×4 (05:30→23:04)
[2021-08-15] MEDS: ENSURE ENLIVE 237 ML CAN PO SCH ×2 (09:00→20:34)
[2021-08-15] MEDS: HYDRALAZINE HCL 10 MG TABLET PO SCH ×2 (09:15→20:34)
[2021-08-15] MEDS: PANTOPRAZOLE 40 MG INJ IVP SCH ×2 (09:15→20:34)
[2021-08-15 13:12] LABS: Absolute Lymphocytes (CBC) 1.3 K/uL (0.7-4.9); Hematocrit 24.8 % (36.0-45.0); Lymphocytes % 7.1 % (15.3-44.8); MPV 6.3 fL (7.6-11.3); RBC Red Blood Cell Count 3.53 M/uL (3.86-4.86)
[2021-08-15 13:26] LABS: BUN Blood Urea Nitrogen 8 mg/dL (7-18); Bicarbonate 27 mmol/L (21-32); Glucose Level 97 mg/dL (74-106); Potassium 3.8 mmol/L (3.5-5.1); Sodium Level 137 mmol/L (136-145)
--- NOTE | 2021-08-15 19:24 | P.PN ---
Date of Service: 08/15/21 Subjective Subjective: Is clinically doing well. Tolerating diet. Ambulating. Advance diet as tolerated. Anticipate discharge over the next 24 to 48 hours per surgery recommendation. Will need outpatient follow-up with cancer center. Spoke with social workers and they are kind to get her Social Security number and information so they can get information to provide her some indigent care. Physical Examination - Vital Signs Reviewed - Physical Exam General: Alert, Oriented x3 HEENT: Atraumatic, Normocephalic Neck: Supple Respiratory: Normal air movement Cardiovascular: Regular rate/rhythm, Normal S1 S2 Gastrointestinal: Soft and benign; nontender and nondistended bowel sounds are positive; incision: Clean/dry/intact Neurological: Normal speech Assessment And Plan - Plan Microcytic anemia suspect NATHALIA/colonic neoplasm Suspected colonic neoplasm with metastasis Plan: Microcytic anemia suspect NATHALIA/colonic neoplasm: Patient status post partial colectomy. Incision healing well. 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 Tolerating diet. Anticipate discharge over the next 48 hours. Hypokalemia: resolved. DVT PPX: SCD Code status: Full
--- NOTE | 2021-08-15 19:31 | P.PN ---
Date of Service: 08/14/21 Subjective Subjective: Patient continues to improve. Clinical symptoms are much better. Physical Examination - Vital Signs Reviewed - Physical Exam General: Alert, Oriented x3 HEENT: Atraumatic, Normocephalic Neck: Supple Respiratory: Normal air movement Cardiovascular: Regular rate/rhythm, Normal S1 S2 Gastrointestinal: Soft and benign; nontender and nondistended bowel sounds are positive; incision: Clean/dry/intact Neurological: Normal speech Assessment And Plan - Plan Microcytic anemia suspect NATHALIA/colonic neoplasm Suspected colonic neoplasm with metastasis Plan: Microcytic anemia suspect NATHALIA/colonic neoplasm: Patient status post partial colectomy. Incision healing well. 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 Tolerating diet. Anticipate discharge over the next 48 hours. Hypokalemia: resolved. DVT PPX: SCD Code status: Full
--- NOTE | 2021-08-15 19:39 | P.PN ---
Date of Service: 08/13/21 Subjective Subjective: Patient with nausea and vomiting today. Patient also has not been feeling well. Physical Examination - Vital Signs Reviewed - Physical Exam General: Alert, Oriented x3 HEENT: Within normal limits Respiratory: Normal air movement Cardiovascular: Regular rate/rhythm, Normal S1 S2 Gastrointestinal: Soft and benign; nontender and nondistended bowel sounds are positive; incision: Clean/dry/intact Neurological: No focal deficits Assessment And Plan - Plan Microcytic anemia suspect NATHALIA/colonic neoplasm Suspected colonic neoplasm with metastasis Plan: Microcytic anemia suspect NATHALIA/colonic neoplasm: Patient status post partial colectomy. Incision healing well. 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 Tolerating diet. Anticipate discharge over the next 48 hours. Hypokalemia: resolved. DVT PPX: SCD Code status: Full
[2021-08-16] MEDS: AMPICILLIN/SULBACT 3 GM in NA CHLORIDE 0.9% 100 ML IVPB SCH ×4 (05:26→23:40)
[2021-08-16 06:02] LABS: Absolute Lymphocytes (CBC) 1.4 K/uL (0.7-4.9); Hematocrit 23.6 % (36.0-45.0); Lymphocytes % 8.7 % (15.3-44.8); MPV 6.4 fL (7.6-11.3); RBC Red Blood Cell Count 3.38 M/uL (3.86-4.86)
[2021-08-16 06:18] LABS: BUN Blood Urea Nitrogen 7 mg/dL (7-18); Bicarbonate 28 mmol/L (21-32); Glucose Level 77 mg/dL (74-106); Potassium 3.5 mmol/L (3.5-5.1); Sodium Level 139 mmol/L (136-145)
[2021-08-16] MEDS: HYDRALAZINE HCL 10 MG TABLET PO SCH ×2 (08:01→20:24)
[2021-08-16] MEDS: PANTOPRAZOLE 40 MG INJ IVP SCH ×2 (08:01→20:24)
[2021-08-16] MEDS: ENSURE ENLIVE 237 ML CAN PO SCH ×2 (08:01→20:25)
[2021-08-16] MEDS ORDERED: POTASSIUM CL SA 10 MEQ TAB PO ONE (09:00)
[2021-08-16] MEDS ORDERED: MINERAL OIL 30 ML UCUP PO ONE (13:30)
--- NOTE | 2021-08-16 13:44 | P.PN ---
Subjective Date of Service: 08/16/21 Chief Complaint: Anemia NATHALIA, hgb 5.1, MCV 60, hypokalemia, abn CT -> asc colon mass Subjective: No new changes (Stay for bowel movement, evaluated by surgery this morning plan for laxative today) Physical Examination - Vital Signs Temperature: 98.2 F Blood Pressure: 124/70 Pulse: 76 Respirations: 16 Pulse Ox (%): 96 Assessment And Plan Physician Review: Patient Assessed, Agree with Above Assessment and Plan Physician Review Additional Text: - Physical Exam General: Alert, Oriented x3 HEENT: Atraumatic, Normocephalic Neck: Supple Respiratory: Normal air movement Cardiovascular: Regular rate/rhythm, Normal S1 S2 Gastrointestinal: Soft and benign; nontender and nondistended bowel sounds are positive; incision: Clean/dry/intact Neurological: Normal speech Assessment And Plan - Plan Microcytic anemia suspect NATHALIA/colonic neoplasm Suspected colonic neoplasm with metastasis Plan: Microcytic anemia suspect NATHALIA/colonic neoplasm: Patient status post partial colectomy. Incision healing well. 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 Tolerating diet. Follow with laxative use and bowel movements within Hypokalemia: resolved. Wound carewe will need outpatient wound care, follow with case management to see if home health can be provided Issues with indigent care DVT PPX: SCD Code status: Full
--- NOTE | 2021-08-16 13:59 | P.PN ---
Date of Service: 08/16/21 S: Patient feels well today, still concerned that she is not having regular bowel movements yet although has had 2 since her surgery. Up ambulating, pain is well controlled O: Clinically looks well, incision is clean, abdomen is soft not distended or tympanic A: Surgically stable P: Patient is doing well, may be able for discharge tomorrow. We will order some mineral oil for the patient. Still awaiting for social work professor to let us know what our options are for follow-up for her cancer.
[2021-08-17 04:14] LABS: Absolute Lymphocytes (CBC) 1.3 K/uL (0.7-4.9); Hematocrit 22.3 % (36.0-45.0); Lymphocytes % 8.4 % (15.3-44.8); MPV 6.1 fL (7.6-11.3); RBC Red Blood Cell Count 3.25 M/uL (3.86-4.86)
[2021-08-17 04:22] VITALS: O2SAT 96
[2021-08-17 04:42] LABS: AST/SGOT 26 U/L (15-37); Albumin 1.7 g/dL (3.4-5.0); Alkaline Phosphatase 151 U/L (45-117); BUN Blood Urea Nitrogen 7 mg/dL (7-18); Bicarbonate 29 mmol/L (21-32); Bilirubin Total 0.4 mg/dL (0.2-1.0); Glucose Level 89 mg/dL (74-106); Potassium 3.7 mmol/L (3.5-5.1); Protein, Total 5.2 g/dL (6.4-8.2); Sodium Level 137 mmol/L (136-145)
[2021-08-17 04:44] LABS: ALT/SGPT < 10 U/L (12-78)
[2021-08-17] MEDS: AMPICILLIN/SULBACT 3 GM in NA CHLORIDE 0.9% 100 ML IVPB SCH ×2 (05:06→12:00)
--- NOTE | 2021-08-17 08:29 | P.DS ---
Admission Date: 08/06/21 Discharge Date: 08/17/21 Disposition: ROUTINE DISCHARGE Reason for Admission: Anemia NATHALIA, hgb 5.1, MCV 60, hypokalemia, abn CT -> asc colon mass Brief History of Present Illness: History of Present Illness: 66-year-old female with history of iron deficiency anemia presented to the emergency department for abnormal labs. She was post have a colonoscopy and EGD done outpatient today but preoperative labs revealed a low hemoglobin she was sent to the emergency department for evaluation. Her hemoglobin in the ER is 5.1 hematocrit 16.7 her platelets Were [address] abdomen pelvis was performed which demonstrated 4.4 cm ascending colon mass likely neoplasm with a 5 mm nodule anterior right lung base and 17 mm nodule within the right lower lobe in addition to multiple hepatic lesions likely suggesting colonic neoplasm with metastasis to the lungs/liver. This was discussed with patient. She was seen here and treated for severe anemia in April of this year instructed to follow-up which is why she had a colonoscopy and EGD scheduled for today. Patient has never had colonoscopy before. Initially ED provider attempted transfer to tertiary center given that we did not have GI on- call, GI physician at [facility] stated this is likely a slow bleed and can likely be managed our facility with transfusion and possible outpatient scope. We do have GI on-call for tomorrow we will admit continue transfusion and Protonix. Hospital Course: Planpatient was admitted for significant anemia with lower GI bleed. She underwent PRBC with improvement in hemoglobin to above 8. GI evaluation and later surgical evaluation was obtained. She was noted with a colonic mass on endoscopy. She underwent a right hemicolectomy with ileocolic anastomosis. Patient tolerated procedure well. Wound is healing nicely. She is ambulating with physical therapy. Her hemoglobin trended down but remained relatively stable. She was started on iron replacement. She will be discharged home today to follow-up with surgeryDr. Krishnan in 1 week. Patient does not have insurance. Case management was involved to help with arrangement of help for patient is seeking management of her cancer as outpatient. Vital Signs/Physical Exam: Temp Pulse Resp BP Pulse Ox 97.9 F 75 14 140/69 94 08/17/21 04:00 08/17/21 04:00 08/17/21 04:00 08/17/21 04:00 08/17/21 04:00 General: Alert, In no apparent distress, Oriented x3 HEENT: Atraumatic, Normocephalic, PERRLA Neck: 2+ carotid pulse no bruit, JVD not distended Respiratory: Clear to auscultation bilaterally, Normal air movement, Diminished Cardiovascular: Normal pulses, Regular rate/rhythm, Normal S1 S2 Gastrointestinal: Normal bowel sounds (healing anterior incision wound ), No ascites, No tenderness Integumentary: No rashes Neurological: Normal speech, Normal strength at 5/5 x4 extr, Normal tone Laboratory Data at Discharge: WBC 15.9 K/uL (4.3-10.9) H 08/17/21 04:01 Hgb 7.0 g/dL (12.0-15.0) L 08/17/21 04:01 Hct 22.3 % (36.0-45.0) L 08/17/21 04:01 Plt Count 599 K/uL (152-406) H 08/17/21 04:01 PT 14.4 SECONDS (9.5-12.5) H 08/05/21 15:06 INR 1.30 08/05/21 15:06 APTT 29.5 SECONDS (24.3-36.9) 08/05/21 15:06 Sodium 137 mmol/L (136-145) 08/17/21 04:01 Potassium 3.7 mmol/L (3.5-5.1) 08/17/21 04:01 BUN 7 mg/dL (7-18) 08/17/21 04:01 Creatinine 0.49 mg/dL (0.55-1.3) L 08/17/21 04:01 Glucose 89 mg/dL (74-106) 08/17/21 04:01 Phosphorus 3.6 mg/dL (2.5-4.9) 08/10/21 05:37 Magnesium 2.3 mg/dL (1.8-2.4) 08/14/21 06:01 Total Bilirubin 0.4 mg/dL (0.2-1.0) 08/17/21 04:01 AST 26 U/L (15-37) 08/17/21 04:01 ALT < 10 U/L (12-78) L 08/17/21 04:01 Alkaline Phosphatase 151 U/L (45-117) H 08/17/21 04:01 Lipase 62 U/L (73-393) L 08/13/21 10:57 Home Medications: Ferrous Sulfate [Feosol] 325 mg PO DAILY 30 Days #30 tab 05/15/21 Diet: Regular Activity: Ad pauly Followup: Christ Quigley MD [Primary Care Provider] - Marcelino Krishnan MD [ACTIVE - CAN ADMIT] - 1 Week Time spent managing pt's care (in minutes): 35
[2021-08-17] MEDS ORDERED: POTASSIUM CL SA 10 MEQ TAB PO ONE (09:00)
[2021-08-17] MEDS: ENSURE ENLIVE 237 ML CAN PO SCH (09:00)
[2021-08-17] MEDS ORDERED: SOD FERRIC GLUC COMPLX/SUCROSE 250 MG in NA CHLORIDE 0.9% 250 ML IV SCH (09:00)
[2021-08-17] MEDS: PANTOPRAZOLE 40 MG INJ IVP SCH (09:16)
[2021-08-17] MEDS: HYDRALAZINE HCL 10 MG TABLET PO SCH (09:16)
[2021-08-17 09:46] VITALS: TEMP 97.5
[2021-08-17 12:52] VITALS: BP 138/75
[2021-08-17] MEDS ORDERED: FERROUS GLUCONATE 324 MG TAB PO SCH (17:00)
== END 2021-08-17 14:46 | disposition home or self-care (01) | DRG 330 ==
LOC: ER 14:02 → ERHOLD 20:56 → 2ND 23:07 → OBSVTOIN 08-06 19:01 → 3RD-ICU 08-10 12:28 → 2ND 08-11 17:45
PROVIDERS: ADMIT Internal Medicine Nephrology; ATTEND Internal Medicine
PROC: 30233N1 Transfusion of Nonautologous Red Blood Cells into Peripheral Vein, Percutaneous Approach (ICD-10-PCS; 2021-08-05)
PROC: 0DB88ZX Excision of Small Intestine, Via Natural or Artificial Opening Endoscopic, Diagnostic (ICD-10-PCS; 2021-08-06)
PROC: 0DBK8ZX Excision of Ascending Colon, Via Natural or Artificial Opening Endoscopic, Diagnostic (ICD-10-PCS; 2021-08-06)
PROC: 0DBP8ZX Excision of Rectum, Via Natural or Artificial Opening Endoscopic, Diagnostic (ICD-10-PCS; 2021-08-06)
PROC: 30233N1 Transfusion of Nonautologous Red Blood Cells into Peripheral Vein, Percutaneous Approach (ICD-10-PCS; 2021-08-06)
PROC: 0DB68ZX Excision of Stomach, Via Natural or Artificial Opening Endoscopic, Diagnostic (ICD-10-PCS; 2021-08-06 14:00)
PROC: 0DTF0ZZ Resection of Right Large Intestine, Open Approach (ICD-10-PCS; principal; 2021-08-10 07:30)
DX: C18.9 Malignant neoplasm of colon, unspecified (principal); C78.01 Secondary malignant neoplasm of right lung; C78.7 Secondary malignant neoplasm of liver and intrahepatic bile duct; Z68.1 Body mass index [BMI] 19.9 or less, adult; K91.89 Other postprocedural complications and disorders of digestive system; K56.7 Ileus, unspecified; K92.1 Melena; E87.6 Hypokalemia; I10 Essential (primary) hypertension; D50.9 Iron deficiency anemia, unspecified; K44.9 Diaphragmatic hernia without obstruction or gangrene; K29.60 Other gastritis without bleeding; K62.1 Rectal polyp; K57.90 Diverticulosis of intestine, part unspecified, without perforation or abscess without bleeding; K64.8 Other hemorrhoids; R63.4 Abnormal weight loss; Y83.6 Removal of other organ (partial) (total) as the cause of abnormal reaction of the patient, or of later complication, without mention of misadventure at the time of the procedure; Y92.239 Unspecified place in hospital as the place of occurrence of the external cause
CPT/HCPCS: 0240U; 36415; 36430; 71045; 74177; 80048; 80053; 80076; 81003; 81015; 82378; 82947; 83605; 83690; 83735; 83880; 84100; 84132; 84145; 84439; 84443; 84484; 85014; 85018; 85025; 85044; 85610; 85730; 86850; 86900; 86901; 87040; 87086; 87088; 88305; 88309; 88312; 93005; 97110; 97116; 97161; 97530; 99285; C9113; G0378; J0295; J1100; J1170; J2250; J2405; J2704; J2710; J2916; J3010; J3480; J7030; J7050; J7120; P9016; Q9967

== ENCOUNTER 2021-09-14 07:06 | Day surgery (SDC) | payer SELFPAY ==
[2021-09-14] MEDS: CEFAZOLIN SODIUM 1 GM/VIAL ONE ×2 (07:44→08:37)
[2021-09-14] MEDS ORDERED: propofoL 200 MG/20 ML VIAL IV ONE ×4 (07:46→10:34)
[2021-09-14] MEDS ORDERED: LIDOCAINE 2% MPF 5 ML VIAL ONE (07:47)
[2021-09-14] MEDS ORDERED: MIDAZOLAM HCL 2 MG/2 ML INJ ONE (07:47)
[2021-09-14] MEDS ORDERED: FENTANYL CITR 100 MCG/2 ML ONE (07:47)
[2021-09-14] MEDS: LIDOCAINE 1% 20 ML MDV ONE ×2 (07:51→09:05)
[2021-09-14] MEDS: HEPARIN 5000 UNIT/ML 1 ML VIAL ONE ×5 (07:53→10:47)
[2021-09-14] MEDS ORDERED: NS 0.9% VIAL 20 ML ONE (07:54)
--- NOTE | 2021-09-14 08:35 | P.HP ---
Date of Service: 09/14/21 PC: This 66-year-old female presents for the placement of a Port-A-Cath for treatment of her metastatic colon cancer. HPC: 1 month ago patient was operated on for a cancer of her ascending colon. He had distant metastatic associations. She has been seen by the oncologist and chemotherapy has been recommended. PSHx: Exploratory laparotomy, colon resection PMHx: Negative Social Hx: No known allergies, does not smoke Sys R: No cough, wheeze, shortness of breath. No chest pain or palpitations. Denies any urinary complaints O/E: Awake alert vital signs are stable HEENT: Within normal limits Chest: No evidence of any clavicular fractures, air entry equal bilaterally Abd: Surgical incision is healed [place]: Intact Impression: Metastatic colon cancer, requires Port-A-Cath for chemotherapy access Plan: I will taken the operating room for a Port-A-Cath. I will place in the subclavian. The risks of this procedure have been discussed. The possibility of bleeding, infection, injury to blood vessels nerves and the lung itself were outlined. The possible need for further surgeries and procedures were discussed. She understands and wants to proceed.
[2021-09-14] MEDS ORDERED: ONDANSETRON 4 MG/2 ML VIAL ONE (08:56)
[2021-09-14] MEDS: Ringers Lactate 1,000 ML IV ONE ×4 (09:09→09:30)
[2021-09-14] MEDS ORDERED: NS 0.9% VIAL 10 ML ONE ×2 (09:59→10:00)
[2021-09-14] MEDS ORDERED: EPHEDRINE SULF 50 MG/ML VIAL ONE (10:31)
--- NOTE | 2021-09-14 10:54 | P.OP ---
Preoperative diagnosis: Metastatic carcinoma of the colon Postoperative diagnosis: The same Primary procedure: Insertion of right sided Port-A-Cath Secondary procedure: Attempted insertion of left-sided Port-A-Cath Anesthesia: General Estimated blood loss: Less than less than 40 cc Specimen: None sent Operative Technique: The patient brought the operating room and placed supine on the table. After the induction of adequate anesthesia, the area of the chest was prepped both left and right side and up on the neck. She was then draped in usual aseptic manner. Attention was turned towards the left side of the chest. Attempts were made to cannulate the left subclavian vein. Having done so we were now able to pass the guidewire down through this. The tear-away catheter and dilator was passed over the guidewire. A pocket was made on the anterior portion of the chest. The catheter was now placed down we had good visualization of the catheter on the right side. At this point the appliance was connected to the catheter. It was buried in the subcutaneous pocket. However as we were doing this portion of the procedure the catheter began to reverse backwards out of our insertion site. It was suspected that we could have arterial blood. At this point I remove the catheter, and restarted the procedure. Attempts were made once again to cannulate the left subclavian vein. Once again we found ourselves in the artery. The catheter dilator was removed. Pressure was held. After confirming we had no evidence of any pneumo with the fluoroscopy at the apex of the lung, we converted to a right sided placement. Once again the finder needle was used to cannulate the right subclavian vein. Of a guidewire was passed down through this. Confirmation was confirmed with the fluoroscopy. The subcutaneous pocket was now made. The catheter was passed from the pocket up to the insertion site. It was then passed down into the vein after placing a tear- away sheath. The catheter laid in good position on the right side of the heart. It was now collected to the appliance. The appliance was a flushed in the usual manner. The pocket was then closed with li. At the end of the procedure the patient was in a stable condition. A right catheter had been inserted and lay in a good anatomical position. She was stable and sent to recovery room. Implants: 1 Port-A-Cath Transferred to: Recovery Room Condition: Good
[2021-09-14 11:31] VITALS: TEMP 97.1
[2021-09-14] MEDS ORDERED: NA CHLORIDE 0.9% 1,000 ML ONE (11:34)
--- NOTE | 2021-09-14 11:48 | RAD REPORT ---
EXAM DESCRIPTION: RAD - Chest Single View - 09/14/2021 11:39 am CLINICAL HISTORY: S/P PORT A CATH INSERTION COMPARISON: Chest Single View dated 08/10/2021; Chest Single View dated 08/05/2021 FINDINGS: Lines: Interval placement of a right subclavian approach Port-A-Cath with tip overlying th e proximal SVC. Lungs: No evidence of edema or pneumonia. Pleural: No significant pleural effusions or pneumothorax. Cardiac: The heart size is within normal limits. Bones: No acute fractures. Other: IMPRESSION: No acute cardiopulmonary disease. Port-A-Cath tip overlies the proximal SVC.
--- NOTE | 2021-09-14 12:28 | RAD REPORT ---
EXAM DESCRIPTION: RAD - Fluoroscopy <1 Hour - 09/14/2021 11:40 am CLINICAL HISTORY: RIGHT PORT A CATH COMPARISON: Abdomen Pelvis W Contrast dated 08/05/2021 FINDINGS/IMPRESSION: Sixty-eight intraoperative fluoroscopic images were submitted. Total fluoro anuel e: 3.2 minutes. Cumulative dose: 49.8 mGy Images submitted showing attempted placement of a left subclavian approach Port-A-Cath. Ultimately, a right subclavian approach port was placed with tip overlying the proximal SVC on the final image.
[2021-09-14 14:45] VITALS: O2SAT 99
[2021-09-14 14:51] VITALS: BP 104/60
== END 2021-09-14 13:25 | disposition home or self-care (01) ==
LOC: OR 07:06
PROVIDERS: ATTEND Surgery
PROC: 0JH60WZ Insertion of Totally Implantable Vascular Access Device into Chest Subcutaneous Tissue and Fascia, Open Approach (ICD-10-PCS; principal; 2021-09-14 08:00)
DX: C78.5 Secondary malignant neoplasm of large intestine and rectum (principal); Z20.822 Contact with and (suspected) exposure to COVID-19
CPT/HCPCS: 71045; 76000; C1788; J0690; J1644; J2250; J2405; J2704; J3010; J7030; J7120; U0003

== ENCOUNTER 2021-09-15 12:29 | Emergency (ER) | payer SELFPAY ==
--- NOTE | 2021-09-15 13:23 | RAD REPORT ---
EXAM DESCRIPTION: CT - [id number] - 09/15/2021 1:10 pm CLINICAL HISTORY: Trauma, head and neck injury. Fall, head trauma, neck pain COMPARISON: Abdomen Pelvis W Contrast dated 08/05/2021 TECHNIQUE: Axial 5 mm thick images of the head were obtained. Axial 2 mm thick images of the cervical spine were obtained with sagittal and coronal reconstruction images generated and reviewed. All CT scans are performed using dose optimization technique as appropriate and may include automated exposure control or mA/KV adjustment according to patient size. FINDINGS: CT HEAD WITHOUT CONTRAST: No acute hemorrhage, hydrocephalus or extra-axial collection is identified.Mild generalized brain atr ophy.No areas of brain edema or midline shift. The paranasal sinuses and mastoids are clear.The calvarium is intact. CT CERVICAL SPINE WITHOUT CONTRAST: Along the left lateral mass anteriorly of C2 there is focal irregular lucency seen suspicious for a f racture this likely involves the left transverse foramen.Prevertebral soft tissues are mildly thicken ed. Pulmonary nodule is present in the right apex measuring 4 mm oblong pulmonary mass like lesion is pre sent in the left apex measuring 26 mm. IMPRESSION: No acute intracranial finding. Suspected fracture involving the left transverse foramen/lateral mass of C2. No subluxation. Pulmonary lesions in the lung apices likely metastatic disease.
--- NOTE | 2021-09-15 14:57 | EDPHYS ---
Physician Documentation [facility] Name: Tayla Francis Age: 66 yrs Sex: Female : 1955 Arrival Date: 09/15/2021 Time: 12:35 Bed Waiting Private MD: ED Physician Forest Del Toro HPI: 09/15 13:41 This 66 yrs old Female presents to ER via Wheelchair with complaints of Fall Injury. jr8 13:41 Details of fall: The patient fell from an upright position, while standing. Onset: The jr8 symptoms/episode began/occurred acutely, yesterday. Associated injuries: The patient sustained injury to the head, neck injury, pain. Severity of symptoms: At their worst the symptoms were mild, in the emergency department the symptoms are unchanged. The patient has not experienced similar symptoms in the past. The patient has not recently seen a physician. Patient stated that she accidentally fell coming out of the shower yesterday hitting the back of her head and neck. Has had mild pain since then. Denies loss of consciousness at that time. Denies any other symptoms at this time.. Historical: - Allergies: 12:45 No Known Allergies; iw - PMHx: 12:45 Hypertensive disorder; PREECLAMPSIA; colon cancer; iw - PSHx: 12:45 section; colon resection; iw ROS: 13:41 Eyes: Negative for injury, pain, redness, and discharge, ENT: Negative for injury, jr8 pain, and discharge, Cardiovascular: Negative for chest pain, palpitations, and edema, Respiratory: Negative for shortness of breath, cough, wheezing, and pleuritic chest pain, Abdomen/GI: Negative for abdominal pain, nausea, vomiting, diarrhea, and constipation, Back: Negative for injury and pain, MS/Extremity: Negative for injury and deformity, Skin: Negative for injury, rash, and discoloration, Neuro: Negative for headache, weakness, numbness, tingling, and seizure. 13:41 Neck: Positive for pain with movement, pain at rest, tenderness. Exam: 13:41 Constitutional: This is a well developed, well nourished patient who is awake, alert, jr8 and in no acute distress. Head/Face: Normocephalic, atraumatic. Eyes: Pupils equal round and reactive to light, extra-ocular motions intact. Lids and lashes normal. Conjunctiva and sclera are non-icteric and not injected. Cornea within normal limits. Periorbital areas with no swelling, redness, or edema. ENT: Nares patent. No nasal discharge, no septal abnormalities noted. Tympanic membranes are normal and external auditory canals are clear. Oropharynx with no redness, swelling, or masses, exudates, or evidence of obstruction, uvula midline. Mucous membranes moist. Cardiovascular: Regular rate and rhythm with a normal S1 and S2. No gallops, murmurs, or rubs. Normal PMI, no JVD. No pulse deficits. Respiratory: Lungs have equal breath sounds bilaterally, clear to auscultation and percussion. No rales, rhonchi or wheezes noted. No increased work of breathing, no retractions or nasal flaring. Abdomen/GI: Soft, non-tender, with normal bowel sounds. No distension or tympany. No guarding or rebound. No evidence of tenderness throughout. Back: No spinal tenderness. No costovertebral tenderness. Full range of motion. Skin: Warm, dry with normal turgor. Normal color with no rashes, no lesions, and no evidence of cellulitis. MS/ Extremity: Pulses equal, no cyanosis. Neurovascular intact. Full, normal range of motion. Neuro: Awake and alert, GCS 15, oriented to person, place, time, and situation. Cranial nerves II-XII grossly intact. Motor strength 5/5 in all extremities. Sensory grossly intact. 13:41 Neck: External neck: is normal, C-spine: vertebral tenderness, that is mild, appreciated at C2, C3 and C4, Thyroid: appears normal, Trachea: is midline with no obvious abnormalities, ROM/movement: pain, that is mild, with any movement, Lymph nodes: no appreciated lymphadenopathy. Vital Signs: 12:44 BP 128 / 69; Pulse 93; Resp 16; Temp 98.6; Pulse Ox 97% ; Weight 44.91 kg (M); iw MDM: 12:47 Patient medically screened. jr8 13:37 Data reviewed: vital signs, nurses notes, radiologic studies, CT scan. Data jr8 interpreted: Pulse oximetry: on room air is 97 %. Interpretation: normal. Counseling: I had a detailed discussion with the patient and/or guardian regarding: the historical points, exam findings, and any diagnostic results supporting the discharge/admit diagnosis, radiology results, the need for outpatient follow up, a orthopedic surgeon, to return to the emergency department if symptoms worsen or persist or if there are any questions or concerns that arise at home. 14:54 ED course: Reached out to Dr. Geovany Saleem MD orthopedic Spine Surgery. Called him marielena twice about non operative transverse process fracture of C2. Dr. Armenta agrees with outpatient treatment plan and will see patient in clinic. Will d/c patient home to f/u with him in clinic in [place]. 14:58 ED course: Patient remains stable and without focal neurologic deficit. Will d/c home jr8 to f/u with Dr. Saleem and if worse or starts to have focal deficit. To come back immediately to ED for further evaluation and imaging . 09/15 13:05 Order name: Head C Spine Mpr Wo Con; Complete Time: 13:29 EDMS Administered Medications: No medications were administered Disposition: 16:10 Co-signature as Attending Physician, Forest Del Toro MD. rn Disposition Summary: 09/15/21 14:57 Discharge Ordered Location: Home jr Problem: new jr8 Symptoms: have improved jr8 Condition: Stable jr8 Diagnosis - Transverse Process Fracture C2 jr8 Followup: jr8 - With: Private Physician - When: 2 - 3 days - Reason: Recheck today's complaints, Continuance of care, Re-evaluation by your physician Discharge Instructions: - Discharge Summary Sheet jr8 - Transverse Process Fracture jr8 Forms: - Medication Reconciliation Form jr8 - Thank You Letter jr8 - Antibiotic Education jr8 - Prescription Opioid Use jr8 Signatures: Dispatcher [employer] EDMS Shirlene Serrano RN RN iw Nieto, Roman, MD MD rn Roszak, Josh, PA PA jr8 Corrections: (The following items were deleted from the chart) 13:10 12:43 Head C Spine MPR Wo Con+CT.RAD.BRZ ordered. EDMS EDMS 15:12 14:54 ED course: Reached out to Dr. Geovany Saleem MD orthopedic Spine Surgery. Called jr8 him twice about non operative transverse process fracture of C2. Still awaiting call back. Will d/c patient home to f/u with him in clinic in [place]. jr8
--- NOTE | 2021-09-15 14:57 | ER ---
Nurse's Notes [facility] Name: Tayla Francis Age: 66 yrs Sex: Female : 1955 Arrival Date: 09/15/2021 Time: 12:35 Bed Waiting Private MD: Diagnosis: Transverse Process Fracture C2 Presentation: 09/15 12:43 Chief complaint: Patient states: slipped and fell in shower yesterday morning, hit head iw and neck. 12:43 Acuity: SALVADOR 4 iw 12:44 Method Of Arrival: Wheelchair iw 12:44 Coronavirus screen: At this time, the client does not indicate any symptoms associated iw with coronavirus-19. Ebola Screen: Patient negative for fever greater than or equal to 101.5 degrees Fahrenheit, and additional compatible Ebola Virus Disease symptoms Patient denies exposure to infectious person. Patient denies travel to an Ebola-affected area in the 21 days before illness onset. No symptoms or risks identified at this time. Initial Sepsis Screen: Does the patient meet any 2 criteria? No. Patient's initial sepsis screen is negative. Does the patient have a suspected source of infection? No. Patient's initial sepsis screen is negative. Risk Assessment: Do you want to hurt yourself or someone else? Patient reports no desire to harm self or others. Onset of symptoms was September 14, 2021. 13:32 Acuity: SALVADOR 3 iw Historical: - Allergies: 12:45 No Known Allergies; iw - PMHx: 12:45 Hypertensive disorder; PREECLAMPSIA; colon cancer; iw - PSHx: 12:45 section; colon resection; iw Screenin:47 Abuse screen: Denies threats or abuse. Denies injuries from another. Nutritional iw screening: No deficits noted. Tuberculosis screening: No symptoms or risk factors identified. Fall Risk Fall in past 12 months (25 points). Assessment: 12:47 General: Appears in no apparent distress. Behavior is calm, cooperative. Pain: iw Complains of pain in neck. Neuro: Level of Consciousness is awake, alert, obeys commands, Oriented to person, place, time, situation, Moves all extremities. Full function. 15:16 Reassessment: Patient appears in no apparent distress at this time. Patient and/or iw family updated on plan of care and expected duration. Pain level reassessed. Patient is alert, oriented x 3, equal unlabored respirations, skin warm/dry/pink. Vital Signs: 12:44 BP 128 / 69; Pulse 93; Resp 16; Temp 98.6; Pulse Ox 97% ; Weight 44.91 kg (M); iw ED Course: 12:35 Patient arrived in ED. mr 12:36 Lb Sow PA is PHCP. jr8 12:36 Forest Del Toro MD is Attending Physician. jr8 12:44 Triage completed. iw 12:45 Arm band placed on. iw 12:48 No provider procedures requiring assistance completed. Patient did not have IV access iw during this emergency room visit. 13:11 Head C Spine Mpr Wo Con In Process Unspecified. EDMS 15:16 Shirlene Serrano, RN is Primary Nurse. iw Administered Medications: No medications were administered Outcome: 14:57 Discharge ordered by . jr8 16:01 Patient left the ED. iw Signatures: Dispatcher [employer] EDID Dania Drake mr Shirlene Serrano, SHANEL UGARTE iw Lb Sow PA PA jr8
[2021-09-15 16:06] VITALS: BP 128/69; TEMP 98.6; O2SAT 97
== END 2021-09-15 16:01 | disposition home or self-care (01) ==
LOC: ER 12:29
DX: S12.100A Unspecified displaced fracture of second cervical vertebra, initial encounter for closed fracture (principal); W18.30XA Fall on same level, unspecified, initial encounter; Y93.E1 Activity, personal bathing and showering; I10 Essential (primary) hypertension; Z85.038 Personal history of other malignant neoplasm of large intestine
CPT/HCPCS: 70450; 72125; 99282